=== PATIENT | male | born 1935 | race Caucasian/White ===

== ENCOUNTER 2016-04-03 11:50 | Inpatient (IN) | payer BC ==
[~2016-04-03] VITALS: Ht 182.9 cm; Wt 80.4 kg
[2016-04-03] MEDS ORDERED: SOD CHLORIDE 0.9% 1,000 ML IV STA (12:11)
[2016-04-03 12:35] VITALS: TEMP 98.3
[2016-04-03 12:36] LABS: HEMATOCRIT 36.4 % (42.0-52.0); HEMOGLOBIN 11.9 g/dl (14.0-18.0); MEAN CORPUSCULAR HGB CONC 32.7 g/dl (32.0-37.0); MEAN CORPUSCULAR VOLUME 85.7 fl (82.0-101.0); MEAN PLATELET VOLUME 6.7 fl (7.4-10.4); MONOCYTE # 0.9 10^3/ul (0.3-0.9); MONOCYTES % 6.5 % (0.0-11.0); NEUTROPHIL # 12.4 10^3/ul (1.6-7.5); NEUTROPHILS % 86.5 % (39.0-77.0); PLATELET COUNT 579 10^3/UL (140-440); RED BLOOD COUNT 4.25 10^6/ul (4.70-6.10); RED CELL DISTRIBUTION WIDTH 16.8 % (11.5-14.5); UNCORRECTED WBC 14.3 10^3/ul (4.8-10.8); WHITE BLOOD COUNT 14.3 10^3/ul (4.8-10.8)
[2016-04-03 12:39] LABS: CONDITION 1; LH ANALYZER COMMENTS 1
[2016-04-03 12:44] LABS: ALBUMIN 2.5 g/dl (3.3-4.9); CHLORIDE 100 mmol/L (97-110)
[2016-04-03 12:45] LABS: SODIUM 136 mmol/L (135-144)
[2016-04-03 12:46] LABS: INR 1.09; PROTIME 14.1 Sec (12.2-14.2); PT RATIO 1.1
[2016-04-03 12:47] LABS: ALANINE AMINOTRANSFERASE 26 IU/L (13-69); ALBUMIN/GLOBULIN RATIO 0.96; ALKALINE PHOSPHATASE 103 IU/L (42-121); ANION GAP 13 (8-16); ASPARTATE AMINO TRANSFERASE 15 IU/L (15-46); BILIRUBIN,INDIRECT 0.2 mg/dl (0-1.1); BILIRUBIN,TOTAL 0.2 mg/dl (0.2-1.3); BLOOD UREA NITROGEN 14 mg/dl (7-20); CARBON DIOXIDE 27 mmol/L (21-31); GLUCOSE 129 mg/dl (70-220); TOTAL PROTEIN 5.1 g/dl (6.1-8.1)
[2016-04-03 12:48] LABS: CALCIUM 8.2 mg/dl (8.4-10.2)
[2016-04-03 12:59] LABS: TROPONIN-I < 0.012 ng/ml (0.00-0.12)
[2016-04-03] MEDS ORDERED: MESA1.2T2 PO (13:07)
[2016-04-03] MEDS ORDERED: TAMS0.4C2 PO (13:07)
[2016-04-03] MEDS ORDERED: ATOR40TA68 PO (13:07)
[2016-04-03] MEDS ORDERED: CANA1000R PR (13:08)
[2016-04-03] MEDS ORDERED: OMEP20CA16 PO (13:08)
[2016-04-03] MEDS ORDERED: SOD CHLORIDE 0.9% 100 ML ONE ×2 (13:14→17:28)
[2016-04-03] MEDS ORDERED: IOHEXOL 100 ML ONE (13:14)
[2016-04-03 13:22] LABS: AADO2 Arterial 44.6 mmHg (7.0-24.0); Allen Test ACCEPTAB; Arterial Base Excess -0.4 mmol/L (-3.0-3); Arterial COHb 0.3 % (0.0-3.0); Arterial Fraction of Oxyhgb 91.6 % (93.0-99.0); Arterial HCO3 23.2 mmol/L (22.0-26.0); Arterial MetHb 0.2 % (0.0-1.5); Arterial Total Hemglobin 12.3 g/dl (12.0-18.0); MODE ROOM AIR
--- NOTE | 2016-04-03 14:01 | RADRPT ---
PROCEDURE: CTA Chest. CLINICAL INDICATION: r/o pe TECHNIQUE: The study was performed utilizing a multidetector CT scanner. Direct spiral 1 mm axial sections were obtained from the thoracic inlet to the upper abdomen with the use of 100 cc of Omnipa que 350 nonionic intravenous contrast material and reformatted at 3 mm. 3-D angiogram, sagittal and Coronal reformations were obtained. The images were reviewed on a PACS workstation. CT D I 42 mCi. Dose 581 mCi per centimeter COMPARISON: No prior studies are available for comparison. FINDINGS: There is no central or peripheral pulmonary embolism. Calcified plaque is seen in the aorta. No an eurysm or dissection is present. There is cardiomegaly with coronary artery calcifications. Noted is a [id number] left pleural effusion. No right pleural effusion or pericardial effusion is present. There is collapse of the basilar segments of the left lower lobe as well as the inferior s egment of the lingula. Mild ground-glass interstitial infiltrate is seen on the dorsal aspect of th e left upper lobe in the superior segment of the left lower lobe. There is minimal atelectasis in t he dependent portion of the right lung. Noted is mild emphysema. No lung masses seen. There is no pneumothorax. No hilar or mediastinal adenopathy or masses seen. There is marked enlargement of the spleen which is only partially included on the study. It measure s greater than 22 cm in AP diameter. No hepatic or adrenal abnormality is identified. There is no axillary, supraclavicular or internal mammary chain adenopathy. Thoracic spine appears normal. IMPRESSION: No pulmonary embolism. Vascular calcifications. No aortic dissection or aneurysm. Moderate to large left pleural effusion with partial left lung collapse. Mild ground-glass intersti tial infiltrate left upper lobe and left lower lobe. No alveolar pneumonia. Emphysema. Cardiomegaly. Marked splenomegaly - question CLL. .Everett Best MD, MD Date Time Electronically viewed and signed by .Everett Best MD, on 04/03/2016 14:00 .A/
[2016-04-03] MEDS ORDERED: CEFTRIAXONE 1 GM/50 ML (PMX) 50 ML IVPB ONE (15:00)
[2016-04-03] MEDS ORDERED: AZITHROMYCIN 500MG/NS (PMX) 250 ML IVPB ONE (15:00)
--- NOTE | 2016-04-03 15:45 | ERA ---
ER Documentation Chief Complaint Date/Time DATE: 04/03/16 TIME: 15:36 Chief Complaint mild sob for the past few days. sent by pmd for ct and further eval HPI 80-year-old man complains of increasing shortness of breath 4 months as well as a 15 pound weight loss since that time. Last year he was diagnosed with ulcerative colitis on colonoscopy after experiencing diarrhea at that time. He has shortness of breath with speaking and recent increasing dyspnea on exertion. His PMD ordered a chest x-ray which revealed a fairly large left- sided pleural effusion, which is new and referred him here for further evaluation. Patient denies fevers or chills, no vomiting or diarrhea, no chest pain, no headache or blurry vision. ROS All systems reviewed and are negative except as per history of present illness. Medications Home Meds Reported Medications Mesalamine* (Canasa*) 1,000 Mg Supp, 1000 MG AK HS, SUPP.RECT 04/03/16 Omeprazole* (Omeprazole*) 20 Mg Capsule.dr, 20 MG PO DAILY, #30 CAP 04/03/16 Mesalamine (Lialda) 1.2 Gm Tablet.dr, 1.2 GM PO DAILY 04/03/16 Atorvastatin* (Atorvastatin*) 40 Mg Tablet, 40 MG PO QHS, #30 TAB 04/03/16 Tamsulosin Hcl* (Tamsulosin Hcl*) 0.4 Mg Cap.er.24h, 0.4 MG PO HS, CAP 04/03/16 Allergies Allergies: Coded Allergies: No Known Allergy (Unverified , 04/03/16) PMhx/Soc [id number] smoker who quit 40 years ago, BPH, dyslipidemia, ulcerative colitis Hx Alcohol Use: No Hx Substance Use: No Hx Tobacco Use: No Smoking Status: Former smoker FmHx Family History: No diabetes Physical Exam Vitals Vital Signs Date Time Temp Pulse Resp B/P Pulse Ox O2 Delivery O2 Flow Rate FiO2 04/03/16 12:35 98.3 93 20 148/73 98 Room Air 04/03/16 11:58 98.5 94 22 149/67 96 Physical Exam GENERAL: Well-developed, well-nourished, dyspneic, afebrile HEENT: Moist mucous membranes, pink conjunctiva, no cervical spine tenderness or step-off deformities, no goiter, no jaundice or icterus, extraocular movements intact without pain. No submandibular induration, and no pharyngeal erythema NEURO: Alert and oriented 3, cranial nerves II through XII intact bilaterally, pupils equal round reactive to light, no focal deficits or facial asymmetry, sensation intact distally Strength 5/5 in upper and lower extremities bilaterally CARDIAC: Tachycardic and regular, no murmurs rubs or gallops LUNGS: Poor air entry bilaterally worse on the left with crackles at the left base, no wheezing or stridor ABDOMEN: Soft nontender, no guarding, no rigidity, no rebound, no psoas sign no obturator sign. Normoactive bowel sounds SKIN: Warm and dry to touch, no abrasions, contusions, or hematomas, no lacerations, no ecchymosis, no target lesions, and without ulcers EXTREMITIES: No clubbing cyanosis or edema, calves are bilaterally symmetrical, no Homans sign, no popliteal cord sign. Distal pulses equal and bilateral PSYCH: Normal affect without agitation or irritability Result Diagram: 04/03/16 1230 04/03/16 1230 Results 24 hrs Laboratory Tests Test 04/03/16 12:30 04/03/16 13:16 Alanine Aminotransferase (ALT/SGPT) 26IU/L Albumin 2.5g/dl Albumin/Globulin Ratio 0.96 Alkaline Phosphatase 103IU/L Anion Gap 13 Aspartate Amino Transf (AST/SGOT) 15IU/L Basophils # 0.010^3/ul Basophils % 0.0% Blood Morphology Comment Blood Urea Nitrogen 14mg/dl CA 125 Antigen 211.0U/ml CA 19-9 Antigen < 1.4U/ml Calcium Level 8.2mg/dl Carbon Dioxide Level 27mmol/L Carcinoembryonic Antigen 0.4ng/ml Chloride Level 100mmol/L Cholesterol Level 125mg/dl Cholesterol/HDL Ratio 6.2RATIO Creatinine 0.70mg/dl Direct Bilirubin 0.00mg/dl Eosinophils # 0.010^3/ul Eosinophils % 0.0% Globulin 2.60g/dl Glucose Level 129mg/dl HDL Cholesterol 20mg/dl Hematocrit 36.4% Hemoglobin 11.9g/dl Hemoglobin A1c 6.0% INR International Normalized Ratio 1.09 Indirect Bilirubin 0.2mg/dl LDL Cholesterol, Calculated 82mg/dl Lactate Dehydrogenase 423IU/L Lipase < 10U/L Lymphocytes # 1.010^3/ul Lymphocytes % 7.0% Magnesium Level 2.1mg/dl Mean Corpuscular Hemoglobin 28.0pg Mean Corpuscular Hemoglobin Concent 32.7g/dl Mean Corpuscular Volume 85.7fl Mean Platelet Volume 6.7fl Monocytes # 0.910^3/ul Monocytes % 6.5% Neutrophils # 12.410^3/ul Neutrophils % 86.5% Nucleated Red Blood Cells # 0.010^3/ul Nucleated Red Blood Cells % 0.0/100WBC Platelet Count 90967^3/UL Potassium Level 4.0mmol/L Prothrombin Time 14.1Sec Prothrombin Time Ratio 1.1 Red Blood Count 4.2510^6/ul Red Cell Distribution Width 16.8% Sodium Level 136mmol/L Thyroid Stimulating Hormone (TSH) 3.470MIU/L Total Bilirubin 0.2mg/dl Total Protein 5.1g/dl Triglycerides Level 114mg/dl Troponin I < 0.012ng/ml White Blood Count 14.310^3/ul Arterial Blood HCO3 23.2mmol/L Arterial Blood Base Excess -0.4mmol/L Arterial Blood Oxygen Saturation 92.1mmHG Jonah Test ACCEPTAB Arterial Blood Gas Puncture Site Right Radial Arterial Blood Carboxyhemoglobin 0.3% Arterial Blood Date Drawn 04/03/2016 1:10:15 PM Arterial Blood Methemoglobin 0.2% Arterial Blood pCO2 (Temp correct) 34.4mmhg Arterial Blood pH (Temp corrected) 7.446 Arterial Blood pO2 (Temp corrected) 63.9mmHG Blood Gas A-a O2 Differential 44.6mmHg Blood Gas Modality ROOM AIR Blood Gas Notified Time 04/03/2016 1:21:54 PM Blood Gas Notified Whom DT Blood Gas Specimen Source Blood arterial Blood Gas Temperature 37.0C FiO2 21.0% Oxyhemoglobin Percent 91.6% Total Hemoglobin 12.3g/dl Current Medications Medications (Trade) Dose Ordered Sig/Brian Route PRN Reason Start Time Stop Time Status Last Admin Dose Admin Sodium Chloride 1,000 ml @ 1,000 mls/hr Q1H STAT IV 04/03/16 12:11 04/03/16 13:53 DC 04/03/16 12:34 Iohexol 100 ml @ STK-MED ONCE .ROUTE 04/03/16 13:14 04/03/16 13:15 DC 04/03/16 14:03 Sodium Chloride 100 ml @ ud STK-MED ONCE .ROUTE 04/03/16 13:14 04/03/16 13:15 DC 04/03/16 14:03 Ceftriaxone Sodium 50 ml @ 100 mls/hr ONCE ONCE IVPB 04/03/16 15:00 04/03/16 15:29 DC 04/03/16 15:30 Azithromycin (Zithromax 500mg/ NS (Pmx)) 250 ml @ 250 mls/hr ONCE ONCE IVPB 04/03/16 15:00 04/03/16 15:59 DC 04/03/16 15:47 Procedures/MDM IV line was established patient was placed on monitoring engineer rhythm strip revealed a sinus tachycardia at 100 bpm with upright P and T waves. Patient was afebrile. EKG performed, read by me revealed a normal sinus rhythm at 93 bpm, normal axis with a narrow QRS complex and poor R-wave progression in precordial leads consistent with a previous [facility], no concerning ST elevations or depressions noted. CT angiogram of the chest was performed there was no pulmonary embolism noted although there was a large left-sided pleural effusion with apparent pulmonary collapse and a large interstitial infiltrate. ABG on room air revealed a pH of 7.45, PCO2 34, PO2 64 revealing hypoxia. CBC revealed a leukocytosis of 14 otherwise unremarkable, electrolytes are within normal limits, liver function tests are normal, troponin was negative. I administered 1 L normal saline intravenously, ceftriaxone 1 g IV, and azithromycin 500 mg IV. Critical Care: Time: 40 minutes, this was time separate from other procedures. Treatments/Evaluations: Close monitoring and treatment of unstable vital signs, cardiorespiratory, and neurologic status, while maintaining tight balance of fluid, respiratory, and cardiac interventions. I spoke to Dr. Tovar regarding the patient's presentation, symptomatology, and CT angiogram findings. We both agreed that admission is the best course at this time for continued medical management, pulmonology consultation, and pleurocentesis. Departure Diagnosis: Primary Impression: Respiratory failure Qualified Code: J96.01 - Acute respiratory failure with hypoxia Additional Impressions: Pleural effusion Pulmonary infiltrate Weight loss Condition: DUY Ontiveros MD Apr 03, 2016 15:45
[2016-04-03] MEDS ORDERED: DOCUSATE SODIUM 100 MG CAP PO PRN (16:00)
[2016-04-03] MEDS ORDERED: NITROGLYCERIN (SL) 0.4 MG TAB SL PRN (16:00)
[2016-04-03] MEDS ORDERED: NACL 0.9% 3 ML SYG IV SCH (16:00)
[2016-04-03] MEDS ORDERED: LORAZEPAM 2 MG INJ IV PRN (16:00)
[2016-04-03] MEDS ORDERED: ONDANSETRON 4 MG INJ IV PRN (16:00)
[2016-04-03] MEDS ORDERED: morphine 2 MG INJ IV PRN (16:00)
[2016-04-03] MEDS ORDERED: ACETAMINOPHEN 325 MG TAB PO PRN (16:00)
[2016-04-03] MEDS ORDERED: ALBUTEROL/IPRATROPIUM (NEB) 3 ML AMP HHN PRN (16:00)
[2016-04-03 16:13] LABS: CHOL/HDL RATIO 6.2 RATIO; MAGNESIUM 2.1 mg/dl (1.7-2.5)
--- NOTE | 2016-04-03 16:36 | HP ---
Date/Time of Note Date/Time of Note DATE: 04/03/16 TIME: 16:11 Assessment/Plan VTE Prophylaxis VTE Prophylaxis Intervention: LMWH Assessment/Plan Assessment/Plan 80 yo male with a past medical history of essential hypertension, prostate CA s/ p seeding, hyperlipidemia, UC, previous smoker, ETOH abuse who presents with several month history of shortness of breath, and weight loss. 1. Shortness of breath - moderate sized left pleural effusion - will admit the patient to telemetry, US thoracentesis, consult pulm - check cytology of pleural fluid 2. 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 infectious ) - consult hem/onc, surgery, check tumor markers, CT abd/pelvis 4. UC - active - consult to GI - IV steroids 5. Anemia of chronic disease - continue to monitor 6. Essential Hypertension - hold meds, prn hydralazine sbp > 160 7. Prostate CA s/p seeding - check PSA 8. Dyslipidemia - hold statin 9. ETOH abuse - counseled patient on cessation 10. GI ppx - protonix 11. DVT ppx - lovenox CODE STATUS - DNR/DNI answered all of his questions. as per clinical course. this history and physical took greater then 45 minutes to complete HPI/ROS Admit Date/Time Admit Date/Time 04/03/2016, 4:12 pm Hx of Present Illness 80 yo male with a past medical history of essential hypertension, prostate CA s/ p seeding, hyperlipidemia, UC, previous smoker, ETOH abuse who presents with several month history of shortness of breath, and weight loss. Patient states that he has nausea, diarrhea (previously bloody), fatigue, 15 lb weight loss over 3 months, decreased appetite, night sweats and generalized fatigue. His shortness of breath has progressively worsened, limiting his mobility markedly. Denies any chest pain, loss of consciousness, headaches/dizziness, urinary/ bowel irregularities, fevers/chills, or other constitutional symptoms. His previous Hem/Onc was Dr. Pete Newton in [facility]. Last colonoscopy was done in October of 2015, negative bx's. ED course: azithro/rocephin ROS 14 point review of systems completed, please refer to HPI for any positive findings PMH/Family/Social Past Medical History UC, prostate CA s/p seeding Medical History: GI bleed, high cholesterol, hypertension Past Surgical History s/p seeding placement for prostate, colonoscopy 10/2015, [facility] for deviated septum Family History Significant Family History: no pertinent family hx, cancer (none), COPD (none) , diabetes (none) Social History Alcohol Use: heavy (2-3 pretty) Smoking Status: Former smoker (20 yr ppd hx) Drug Use: none Exam/Review of Systems Vital Signs Vitals Vital Signs Date Time Temp Pulse Resp B/P Pulse Ox O2 Delivery O2 Flow Rate FiO2 04/03/16 12:35 98.3 93 20 148/73 98 Room Air Exam Exam Gen Hermelindo: moderate respiratory distress, AAOx4 HEENT: NC/AT, PERRLA, EOMI, no pharyngeal erythema, no tonsillar exudates, no lymphadenopathy, no JVD, no carotid bruits NECK: supple, no thyromegaly THORAX: symmetrical, no obvious deformities CV: S1S2, RRR, no M/G/R Lungs: CTAB no W/C/R/R Abd: soft, NT/distended, +BS, no rebound, no guarding, +HSM EXT: 2+ pitting edema, no ecchymosis, no clubbing, FROM Neuro: CN II-XII grossly intact, no focal deficits Psych: fair mood and affect Skin: decreased skin turgor Labs Result Diagram: 04/03/16 1230 04/03/16 1230 Medications Medications Current Medications Lorazepam (Ativan) 0.5 mg Q6H PRN IV ANXIETY; Start 04/03/16 at 16:00 Ondansetron HCl (Zofran Inj) 4 mg Q6H PRN IV NAUSEA AND/OR VOMITING; Start 02/05 at 16:00 Nitroglycerin (Nitroglycerin (Sl Tab) 0.4 Mg) 1 tab Q5M PRN SL CHEST PAIN; Start 04/03/16 at 16:00 Acetaminophen (Tylenol Tab) 650 mg Q6H PRN PO PAIN LEVEL 1-3 OR FEVER; Start at 16:00 Morphine Sulfate (morphine) 2 mg Q4H PRN IV PAIN LEVEL 7-10; Start 04/03/16 at 16:00 Docusate Sodium (Colace) 100 mg Q12H PRN PO CONSTIPATION; Start 04/03/16 at 16: 00 Famotidine (Pepcid Iv) 20 mg Q12 IV ; Start 04/03/16 at 21:00 Enoxaparin Sodium 40 mg 40 mg DAILY SC ; Start 04/04/16 at 09:00 Ceftriaxone Sodium 50 ml @ 100 mls/hr Q24H IVPB ; Start 04/04/16 at 15:00 Azithromycin (Zithromax 500mg/ NS (Pmx)) 250 ml @ 250 mls/hr Q24H IVPB ; Start 04/04/16 at 16:00 Procedures Procedures CTA Chest IMPRESSION: No pulmonary embolism. Vascular calcifications. No aortic dissection or aneurysm. Moderate to large left pleural effusion with partial left lung collapse. Mild ground-glass interstitial infiltrate left upper lobe and left lower lobe. No alveolar pneumonia. Emphysema. Cardiomegaly. Marked splenomegaly - question CLL. SALVATORE SANDRA MD Apr 03, 2016 16:22
[2016-04-03 16:45] LABS: THYROID STIMULATING HORMONE 3.47 MIU/L (0.465-4.680)
[2016-04-03] MEDS ORDERED: IODIXANOL LOCM 100 ML BTL ONE (17:29)
[2016-04-03 17:32] LABS: CANCER ANTIGEN 19-9 < 1.4 U/ml (0.0-37.0); CARCINOEMBRYONIC ANTIGEN 0.4 ng/ml (0.0-5.0)
[2016-04-03 17:54] VITALS: BP 148/78; PULSE 103; RESP 15
[2016-04-03 17:55] VITALS: PULSE 110
[2016-04-03 18:05] VITALS: Ht 182.9 cm; Wt 80.4 kg
--- NOTE | 2016-04-03 18:59 | RADRPT ---
PROCEDURE: CT Abdomen and Pelvis with contrast. CLINICAL INDICATION: Abdominal pain TECHNIQUE: CT scan of the abdomen and pelvis with and without contrast was performed on a multidet justo high-resolution CT scanner. The patient was scanned following the uncomplicated intravenous a dministration of 100 cc of Omnipaque 300. Coronal and sagittal reformatted images were obtained fro m the axial source images. Images were reviewed on a high-resolution PACS workstation. The total exa m CTDI equals 7.40 mGy and the total exam DLP equals 827.72 mGy-cm. COMPARISON: None. FINDINGS: CT abdomen: There is trace right pleural effusion with minimal right basilar atelectasis. There is a moderate size left pleural effusion with compressive atelectasis in the left lung base. The heart size is normal. No pericardial effusion identified. There is a large, heterogeneous hypervascular mass in the left upper quadrant of the abdomen which m easures 22 x 21 x 17 cm There is small ascites, in the left upper quadrant, left pericolic gutter and in the pelvis. The mass displaces the spleen inferiorly. The location of the mass is intraperitoneal, abutting the underside of the left hemidiaphragm, displ acing the stomach medially and extending from the midline to the left lateral abdominal wall. The liver demonstrates normal size and density. No liver mass identified. In the left and right lobes of the liver there are numerous sub centimeter low density foci which ar e too small to characterize by CT criteria, but statistically likely represents cysts. The gallbladder is unremarkable. There is no intrahepatic or extrahepatic biliary dilatation. The spleen is normal in size. No focal splenic abnormality identified. No gross abnormality of the stomach is identified. The pancreas is unremarkable. The adrenal glands appear normal. The kidneys are unremarkable. There is no evidence of renal mass, renal calculi or hydronephrosis. The aorta is of normal caliber. Aortic vascular calcifications are present. No adenopathy identified. The bowel and mesentery are unremarkable. CT pelvis: The pelvic organs are normal. The pelvic sidewalls and inguinal regions are clear. The sigmoid colon and rectum are remarkable for sigmoid diverticulosis. No adenopathy, free fluid or inflammatory change identified. The osseous structures are remarkable for advanced degenerative spondylosis of the spine at L4/L5 an d L5-S1. Grade 1 anterolisthesis of L4 on L5. No osteolytic or osteoblastic lesion is detected. There is a small right inguinal hernia. Radiation seeds are seen in the prostate bed. IMPRESSION: 1. Large mass in the left upper quadrant of the abdomen of indeterminate origin and measuring 23 cm with an estimated volume of 4.3 liters. Soft tissue sampling may be necessary for definitive diagn osis. 2. Small ascites. 3. Moderate atherosclerotic peripheral vascular disease. 4. Moderate size left pleural effusion. 5. Moderate compressive atelectasis in the left lung base. 6. Trace right pleural effusion. 7. Small right inguinal hernia. RPTAT: QQ .Jose M Franklin MD, Date Time Electronically viewed and signed by .Jose M Franklin MD, on 04/03/2016 18:59 .M/
[2016-04-03 19:24] LABS: CREATINE KINASE < 20 IU/L (23-200)
[2016-04-03 19:53] LABS: CK-MB 0.87 ng/ml (0.0-2.4); TROPONIN-I < 0.012 ng/ml (0.00-0.12)
[2016-04-03 20:01] VITALS: PULSE 90
[2016-04-03] MEDS: FAMOTIDINE 20 MG INJ IV SCH (20:02)
[2016-04-03 20:21] VITALS: BP 136/65; RESP 16
[2016-04-03 22:05] LABS: CREATINE KINASE < 20 IU/L (23-200)
[2016-04-03 22:23] LABS: CK-MB 0.82 ng/ml (0.0-2.4); TROPONIN-I < 0.012 ng/ml (0.00-0.12)
[2016-04-03 23:51] VITALS: BP 150/70; RESP 20
[2016-04-04] VITALS (12 sets, daily range): BP systolic 140–164; BP diastolic 76–84; PULSE 80–99; RESP 17–20
[2016-04-04 06:13] LABS: BASOPHILS % 0.1 % (0.0-2.0); HEMATOCRIT 34.7 % (42.0-52.0); HEMOGLOBIN 11.5 g/dl (14.0-18.0); LYMPHOCYTES # 1.3 10^3/ul (0.8-2.9); LYMPHOCYTES % 10.7 % (15.0-51.0); MEAN CORPUSCULAR HEMOGLOBIN 28.4 pg (29.0-33.0); MEAN CORPUSCULAR HGB CONC 33.2 g/dl (32.0-37.0); MEAN CORPUSCULAR VOLUME 85.4 fl (82.0-101.0); MEAN PLATELET VOLUME 6.9 fl (7.4-10.4); MONOCYTE # 0.9 10^3/ul (0.3-0.9); MONOCYTES % 7.1 % (0.0-11.0); NEUTROPHIL # 10.1 10^3/ul (1.6-7.5); NEUTROPHILS % 82.1 % (39.0-77.0); PLATELET COUNT 531 10^3/UL (140-440); RED BLOOD COUNT 4.07 10^6/ul (4.70-6.10); UNCORRECTED WBC 12.3 10^3/ul (4.8-10.8); WHITE BLOOD COUNT 12.3 10^3/ul (4.8-10.8)
[2016-04-04 06:22] LABS: CONDITION 1; LH ANALYZER COMMENTS 1
[2016-04-04 06:43] LABS: CREATININE 0.71 mg/dl (0.61-1.24)
[2016-04-04 06:44] LABS: CALCIUM 8.1 mg/dl (8.4-10.2)
--- NOTE | 2016-04-04 06:54 | CONS ---
DATE OF ADMISSION: 04/03/2016 DATE OF CONSULTATION: 04/03/2016 TYPE OF CONSULTATION: Pulmonary. PRIMARY PHYSICIAN: Lobito Moralez MD REASON FOR CONSULTATION: Left pleural effusion, evaluation of pleural effusion. HISTORY OF PRESENT ILLNESS: Briefly, this is a 80-year-old gentleman with a history of hypertension , prostate cancer status post radiation, hyperlipidemia, ulcerative colitis, ETOH abuse, who present s with a subacute history of increasing shortness of breath and weight loss. Additionally, he endor ses nausea and diarrhea and a 15-pound weight loss. He also says that he has had progressive dyspne a on exertion and increasing shortness of breath and abdominal distention. PAST MEDICAL HISTORY: As noted above. In addition, hypercholesterolemia and prior GI bleed. PAST SURGICAL HISTORY: Status post radiation seed implantation for prostate cancer and colonoscopy and surgery for deviated septum. SOCIAL HISTORY: Occasional alcohol. Former tobacco, quit years prior, but has a 20-year pack smoki ng history. No illicit drug use. PHYSICAL EXAMINATION: VITAL SIGNS: Heart rate is 101, blood pressure is 134/73, oxygen saturation is 93% on room air, tem perature is 98.3. HEENT: Normocephalic, atraumatic. NECK: Supple, no thyromegaly. CARDIOVASCULAR: Regular rate and rhythm, S1 and S2. No murmurs, rubs, or gallops. CHEST: Clear with decreased breath sounds at the left base. ABDOMEN: Soft, distended, massive splenomegaly is palpated. EXTREMITIES: There is 1 to 2+ lower extremity edema. LABORATORY DATA: BMP is within normal limits. Albumin is 2.5, total protein is 5.1. Coags are wit hin normal limits. ABG: pH is 7.45, pCO2 of 34, pO2 is 64. WBC is 14.3, hemoglobin 11.9, platelet s are 579. CT pulmonary angiogram shows no pulmonary embolism, shows a moderate-sized left pleural effusion with some associated atelectatic lung as well as central lobular emphysema and there is a m assively enlarged spleen noted. IMPRESSION: Left pleural effusion. I suspect that this patient's pleural effusion is associated wi th the condition that has resulted in his hepatosplenomegaly. At this point, the most likely etiolo gical consideration would be a lymphoproliferative disorder such as non-Hodgkin's lymphoma in view o f no significant abnormalities in his peripheral blood. I doubt this is chronic myeloid leukemia. RECOMMENDATIONS: 1. Ultrasound-guided therapeutic and diagnostic thoracentesis to be sent for routine pleural studie s including cell count with diff, total protein, glucose, LDH, and cytological examination as well a s Gram stain and culture. 2. Would obtain a serum LDH. 3. Would obtain hematology/oncology evaluation. 4. Would consider sending pleural fluid for flow cytometry as lymphoma is very high on the differen tial. Dictated By: SHUN GAY MD NK/NTS Conf#: [id number] DID#: [id number] CC: LOBITO MORALEZ MD; SURENDRA POLLARD MD;*End*
[2016-04-04] MEDS: ENOXAPARIN 40 MG/0.4 ML SYG SC SCH (08:12)
[2016-04-04] MEDS: FAMOTIDINE 20 MG INJ IV SCH ×2 (08:12→20:25)
--- NOTE | 2016-04-04 10:52 | PN ---
Date/Time of Note Date/Time of Note DATE: 04/04/16 TIME: 10:46 Assessment/Plan VTE Prophylaxis VTE Prophylaxis Intervention: LMWH Lines/Catheters IV C[facility]ter Type [facility]from [facility] Saline Lock Urinary Cath still in place: No Assessment/Plan Chief Complaint/Hosp Course Assessment/Plan 1. Shortness of breath - moderate sized left pleural effusion -plan for US thoracentesis, pulm consulted- check cytology of pleural fluid 2. 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 infectious ) - consult hem/onc, surgery, check tumor markers, CT abd/pelvis reviewed 4. UC - active - consult to GI - IV steroids 5. Anemia of chronic disease - continue to monitor 6. Essential Hypertension - hold meds if systolic blood pressure is less than 110, 7. Prostate CA s/p seeding -follow-up PSA level 8. Dyslipidemia - hold statin 9. ETOH abuse - counseled patient on cessation 10. GI ppx - protonix 11. DVT ppx - lovenox CODE STATUS - DNR/DNI answered all of his questions. as per clinical course. Problems: Subjective 24 Hr Interval Summary Free Text/Dictation Patient complains of having shortness of breath No nausea vomiting diarrhea denies of any chest pain Exam/Review of Systems Vital Signs Vitals Vital Signs Date Time Temp Pulse Resp B/P Pulse Ox O2 Delivery O2 Flow Rate FiO2 04/04/16 09:35 89 04/04/16 07:57 98.2 17 164/81 94 Nasal Cannula 2.0 Intake and Output 04/03/16 04/03/16 04/04/16 15:00 23:00 07:00 Intake Total 250 ml Balance 250 ml Exam General: The patient is well-developed, Not in acute distress. HEENT: Atraumatic, normocephalic. The pupils are equal and round . Neck: Supple with full range of motion. Chest: Normal expansion of the thorax during inspiration Lungs: Decreased breath sounds left lung field Heart: Normal S1-S2, Regular rhythm and rate. Abdomen: Soft , nontender, nondistended , bowel sounds are present. Extremities: Normal to inspection, no edema no cyanosis Neurologic: Normal mental status,The patient is awake, alert and oriented . Results Result Diagram: 04/04/16 0540 04/04/16 0540 Results 24 hrs Laboratory Tests Test 04/03/16 12:30 04/03/16 13:16 04/03/16 18:20 04/03/16 21:40 Alanine Aminotransferase (ALT/SGPT) 26 Albumin 2.5 L Albumin/Globulin Ratio 0.96 Alkaline Phosphatase 103 Alpha Fetoprotein 1.28 Anion Gap 13 Aspartate Amino Transf (AST/SGOT) 15 Basophils # 0.0 Basophils % 0.0 Blood Morphology Comment Blood Urea Nitrogen 14 CA 125 Antigen 211.0 H CA 19-9 Antigen < 1.4 Calcium Level 8.2 L Carbon Dioxide Level 27 Carcinoembryonic Antigen 0.4 Chloride Level 100 Cholesterol Level 125 Cholesterol/HDL Ratio 6.2 Creatinine 0.70 Direct Bilirubin 0.00 Eosinophils # 0.0 Eosinophils % 0.0 Globulin 2.60 Glucose Level 129 HDL Cholesterol 20 L Hematocrit 36.4 L Hemoglobin 11.9 L Hemoglobin A1c 6.0 H INR International Normalized Ratio 1.09 Indirect Bilirubin 0.2 LDL Cholesterol, Calculated 82 Lactate Dehydrogenase 423 Lipase < 10 L Lymphocytes # 1.0 Lymphocytes % 7.0 L Magnesium Level 2.1 Mean Corpuscular Hemoglobin 28.0 L Mean Corpuscular Hemoglobin Concent 32.7 Mean Corpuscular Volume 85.7 Mean Platelet Volume 6.7 L Monocytes # 0.9 Monocytes % 6.5 Neutrophils # 12.4 H Neutrophils % 86.5 H Nucleated Red Blood Cells # 0.0 Nucleated Red Blood Cells % 0.0 Platelet Count 579 H Potassium Level 4.0 Prothrombin Time 14.1 Prothrombin Time Ratio 1.1 Red Blood Count 4.25 L Red Cell Distribution Width 16.8 H Sodium Level 136 Thyroid Stimulating Hormone (TSH) 3.470 Total Bilirubin 0.2 Total Protein 5.1 L 4.4 L Triglycerides Level 114 Troponin I < 0.012 < 0.012 < 0.012 White Blood Count 14.3 H Arterial Blood HCO3 23.2 Arterial Blood Base Excess -0.4 Arterial Blood Oxygen Saturation 92.1 L Jonah Test ACCEPTAB Arterial Blood Gas Puncture Site Right Radial Arterial Blood Carboxyhemoglobin 0.3 Arterial Blood Date Drawn 04/03/2016 1:10:15 PM Arterial Blood Methemoglobin 0.2 Arterial Blood pCO2 (Temp correct) 34.4 L Arterial Blood pH (Temp corrected) 7.446 Arterial Blood pO2 (Temp corrected) 63.9 L Blood Gas A-a O2 Differential 44.6 H Blood Gas Modality ROOM AIR Blood Gas Notified Time 04/03/2016 1:21:54 PM Blood Gas Notified Whom DT Blood Gas Specimen Source Blood arterial Blood Gas Temperature 37.0 FiO2 21.0 Oxyhemoglobin Percent 91.6 L Total Hemoglobin 12.3 Creatine Kinase < 20 L < 20 L Creatine Kinase Index Creatinine Kinase MB (Mass) 0.87 0.82 Test 04/04/16 05:40 Anion Gap 9 Basophils # 0.0 Basophils % 0.1 Blood Morphology Comment Blood Urea Nitrogen 12 Calcium Level 8.1 L Carbon Dioxide Level 26 Chloride Level 103 Creatinine 0.71 Eosinophils # 0.0 Eosinophils % 0.0 Glucose Level 101 Hematocrit 34.7 L Hemoglobin 11.5 L Lymphocytes # 1.3 Lymphocytes % 10.7 L Mean Corpuscular Hemoglobin 28.4 L Mean Corpuscular Hemoglobin Concent 33.2 Mean Corpuscular Volume 85.4 Mean Platelet Volume 6.9 L Monocytes # 0.9 Monocytes % 7.1 Neutrophils # 10.1 H Neutrophils % 82.1 H Nucleated Red Blood Cells # 0.0 Nucleated Red Blood Cells % 0.0 Platelet Count 531 H Potassium Level 4.0 Red Blood Count 4.07 L Red Cell Distribution Width 16.0 H Sodium Level 134 L White Blood Count 12.3 H Medications Medications Current Medications Lorazepam (Ativan) 0.5 mg Q6H PRN IV ANXIETY; Start 04/03/16 at 16:00 Ondansetron HCl (Zofran Inj) 4 mg Q6H PRN IV NAUSEA AND/OR VOMITING; Start 02/05 at 16:00 Nitroglycerin (Nitroglycerin (Sl Tab) 0.4 Mg) 1 tab Q5M PRN SL CHEST PAIN; Start 04/03/16 at 16:00 Acetaminophen (Tylenol Tab) 650 mg Q6H PRN PO PAIN LEVEL 1-3 OR FEVER; Start at 16:00 Morphine Sulfate (morphine) 2 mg Q4H PRN IV PAIN LEVEL 7-10; Start 04/03/16 at 16:00 Docusate Sodium (Colace) 100 mg Q12H PRN PO CONSTIPATION; Start 04/03/16 at 16: 00 Famotidine (Pepcid Iv) 20 mg Q12 IV Last administered on 04/04/16t 08:12; Admin Dose 20 MG; Start 04/03/16 at 21:00 Enoxaparin Sodium 40 mg 40 mg DAILY SC ; Start 04/04/16 at 09:00 Ceftriaxone Sodium 50 ml @ 100 mls/hr Q24H IVPB ; Start 04/04/16 at 15:00 Azithromycin (Zithromax 500mg/ NS (Pmx)) 250 ml @ 250 mls/hr Q24H IVPB ; Start 04/04/16 at 16:00 DIAN VIEYRA MD Apr 04, 2016 10:52
--- NOTE | 2016-04-04 11:28 | CONS ---
Date/Time of Note Date/Time of Note DATE: 04/04/16 TIME: 11:23 Assessment/Plan Assessment/Plan Additional Assessment/Plan Assessment recommendations; 1. Patient admitted with shortness of breath discovered to have moderate left pleural effusion with a very large cystic mass around the spleen. 2. History of ulcerative colitis recently diagnosed patient had a colonoscopy in October of last year which according to the patient did not reveal any signs of malignancy. 3. Hyperlipidemia. 4. CA prostate. 5. Alcohol abuse Continue current treatment. Patient scheduled for ultrasound-guided thoracentesis. At this time I would recommend obtaining a general surgery consult, the patient may need to have a laparotomy performed.. Consultation Date/Type/Reason Admit Date/Time Apr 03, 2016 at 15:36 Initial Consult Date Type of Consultation: Pulmonary 24 HR Interval Summary Free Text/Dictation Patient condition is stable. Complains of a scant cough. Minimal shortness of breath. Complains of abdominal discomfort. Denies any nausea vomiting. Next General examination; elderly male, currently in no distress. Awake and alert. Exam/Review of Systems Vital Signs Vitals Vital Signs Date Time Temp Pulse Resp B/P Pulse Ox O2 Delivery O2 Flow Rate FiO2 04/04/16 09:35 89 04/04/16 07:57 98.2 17 164/81 94 Nasal Cannula 2.0 Intake and Output 04/03/16 04/03/16 04/04/16 15:00 23:00 07:00 Intake Total 250 ml Balance 250 ml Exam H EENT examination; supple neck, no JVD. No lymphadenopathy. No thyromegaly. Pharynx is clear. Pupils are small bilaterally. Chest examination; diminished breath sounds left lower lobe otherwise clear, S1- S2 audible, no murmurs. Regular rhythm. Abdomen examination; there is tenderness tenderness and fullness in the left upper quadrant area. Bowel sounds audible. Extremity examination; no edema. LOT BOSS examination no focal deficit. Results Result Diagram: 04/04/16 0540 04/04/16 0540 Results 24 hrs Laboratory Tests Test 04/03/16 12:30 04/03/16 13:16 04/03/16 18:20 04/03/16 21:40 Alanine Aminotransferase (ALT/SGPT) 26 Albumin 2.5 L Albumin/Globulin Ratio 0.96 Alkaline Phosphatase 103 Alpha Fetoprotein 1.28 Anion Gap 13 Aspartate Amino Transf (AST/SGOT) 15 Basophils # 0.0 Basophils % 0.0 Blood Morphology Comment Blood Urea Nitrogen 14 CA 125 Antigen 211.0 H CA 19-9 Antigen < 1.4 Calcium Level 8.2 L Carbon Dioxide Level 27 Carcinoembryonic Antigen 0.4 Chloride Level 100 Cholesterol Level 125 Cholesterol/HDL Ratio 6.2 Creatinine 0.70 Direct Bilirubin 0.00 Eosinophils # 0.0 Eosinophils % 0.0 Globulin 2.60 Glucose Level 129 HDL Cholesterol 20 L Hematocrit 36.4 L Hemoglobin 11.9 L Hemoglobin A1c 6.0 H INR International Normalized Ratio 1.09 Indirect Bilirubin 0.2 LDL Cholesterol, Calculated 82 Lactate Dehydrogenase 423 Lipase < 10 L Lymphocytes # 1.0 Lymphocytes % 7.0 L Magnesium Level 2.1 Mean Corpuscular Hemoglobin 28.0 L Mean Corpuscular Hemoglobin Concent 32.7 Mean Corpuscular Volume 85.7 Mean Platelet Volume 6.7 L Monocytes # 0.9 Monocytes % 6.5 Neutrophils # 12.4 H Neutrophils % 86.5 H Nucleated Red Blood Cells # 0.0 Nucleated Red Blood Cells % 0.0 Platelet Count 579 H Potassium Level 4.0 Prothrombin Time 14.1 Prothrombin Time Ratio 1.1 Red Blood Count 4.25 L Red Cell Distribution Width 16.8 H Sodium Level 136 Thyroid Stimulating Hormone (TSH) 3.470 Total Bilirubin 0.2 Total Protein 5.1 L 4.4 L Triglycerides Level 114 Troponin I < 0.012 < 0.012 < 0.012 White Blood Count 14.3 H Arterial Blood HCO3 23.2 Arterial Blood Base Excess -0.4 Arterial Blood Oxygen Saturation 92.1 L Jonah Test ACCEPTAB Arterial Blood Gas Puncture Site Right Radial Arterial Blood Carboxyhemoglobin 0.3 Arterial Blood Date Drawn 04/03/2016 1:10:15 PM Arterial Blood Methemoglobin 0.2 Arterial Blood pCO2 (Temp correct) 34.4 L Arterial Blood pH (Temp corrected) 7.446 Arterial Blood pO2 (Temp corrected) 63.9 L Blood Gas A-a O2 Differential 44.6 H Blood Gas Modality ROOM AIR Blood Gas Notified Time 04/03/2016 1:21:54 PM Blood Gas Notified Whom DT Blood Gas Specimen Source Blood arterial Blood Gas Temperature 37.0 FiO2 21.0 Oxyhemoglobin Percent 91.6 L Total Hemoglobin 12.3 Creatine Kinase < 20 L < 20 L Creatine Kinase Index Creatinine Kinase MB (Mass) 0.87 0.82 Test 04/04/16 05:40 Anion Gap 9 Basophils # 0.0 Basophils % 0.1 Blood Morphology Comment Blood Urea Nitrogen 12 Calcium Level 8.1 L Carbon Dioxide Level 26 Chloride Level 103 Creatinine 0.71 Eosinophils # 0.0 Eosinophils % 0.0 Glucose Level 101 Hematocrit 34.7 L Hemoglobin 11.5 L Lymphocytes # 1.3 Lymphocytes % 10.7 L Mean Corpuscular Hemoglobin 28.4 L Mean Corpuscular Hemoglobin Concent 33.2 Mean Corpuscular Volume 85.4 Mean Platelet Volume 6.9 L Monocytes # 0.9 Monocytes % 7.1 Neutrophils # 10.1 H Neutrophils % 82.1 H Nucleated Red Blood Cells # 0.0 Nucleated Red Blood Cells % 0.0 Platelet Count 531 H Potassium Level 4.0 Red Blood Count 4.07 L Red Cell Distribution Width 16.0 H Sodium Level 134 L White Blood Count 12.3 H Medications Medications Current Medications Lorazepam (Ativan) 0.5 mg Q6H PRN IV ANXIETY; Start 04/03/16 at 16:00 Ondansetron HCl (Zofran Inj) 4 mg Q6H PRN IV NAUSEA AND/OR VOMITING; Start 02/05 at 16:00 Nitroglycerin (Nitroglycerin (Sl Tab) 0.4 Mg) 1 tab Q5M PRN SL CHEST PAIN; Start 04/03/16 at 16:00 Acetaminophen (Tylenol Tab) 650 mg Q6H PRN PO PAIN LEVEL 1-3 OR FEVER; Start at 16:00 Morphine Sulfate (morphine) 2 mg Q4H PRN IV PAIN LEVEL 7-10; Start 04/03/16 at 16:00 Docusate Sodium (Colace) 100 mg Q12H PRN PO CONSTIPATION; Start 04/03/16 at 16: 00 Famotidine (Pepcid Iv) 20 mg Q12 IV Last administered on 04/04/16t 08:12; Admin Dose 20 MG; Start 04/03/16 at 21:00 Enoxaparin Sodium 40 mg 40 mg DAILY SC ; Start 04/04/16 at 09:00 Ceftriaxone Sodium 50 ml @ 100 mls/hr Q24H IVPB ; Start 04/04/16 at 15:00 Azithromycin (Zithromax 500mg/ NS (Pmx)) 250 ml @ 250 mls/hr Q24H IVPB ; Start 04/04/16 at 16:00 NATASHA RIVAS Apr 04, 2016 11:28
[2016-04-04] MEDS ORDERED: LIDOCAINE 1% (MPF) 5 ML VIAL ONE (14:20)
--- NOTE | 2016-04-04 14:45 | CONS ---
Date/Time of Note Date/Time of Note DATE: 04/04/16 TIME: 14:30 Assessment/Plan Assessment/Plan Chief Complaint/Hosp Course 80 yo male with history of prostate cancer, who presents with a L sided pleural effusion as well as a large heterogeneous hypervascular mass in the left upper quadrant of the abdomen which measures 22 x 21 x 17 cm. At this point I am definitively concerned for an underlying malignancy as the underlying cause of this pleural effusion and abdominal mass. This far LDH is normal which makes a high grade lymphoma less likely although this does not rule out lymphoma all together. -f/u cytology from the thoracentesis -if cytology is negative will need to discuss with surgery and IR the possibility of performing a biopsy on this mass for tissue diagnosis. Approximately 40 min were spent at patient's bedside and in coordination of his care Problems: Consultation Date/Type/Reason Admit Date/Time Apr 03, 2016 at 15:36 Date of Consultation: Apr 04, 2016 Type of Consultation: Oncology Reason for Consultation abdominal mass Referring Provider: SALVATORE SANDRA MD Hx of Present Illness 80 yo male with multiple medical problems including h/o prostate cancer that was definitively treated with XRT. Patient presents with several month history of shortness of breath, and weight loss. He also endorses nausea, diarrhea fatigue, 15 lb weight loss over 3 months, decreased appetite, night sweats and generalized fatigue. Since admission pt has had a CT Chest which demonstrates a large left pleural effusion with partial left lung collapse. A CT A/P was done which demonstrate a large abdominal cystic mass proximal to the spleen measuring almost 22cm. Constitutional: no complaints Eyes: no complaints ENT: no complaints Respiratory: pain, shortness of breath Cardiovascular: no complaints Gastrointestinal: decreased appetite, nausea, pain Genitourinary: no complaints Musculoskeletal: bone/joint pain Skin: no complaints Neurologic: no complaints Endocrine: no complaints Past Medical History essential hypertensio prostate CA s/p definitive radiation hyperlipidemia, ulcerative colitis x Medical History: GI bleed, high cholesterol, hypertension Family History Significant Family History: no pertinent family hx Social History previous smoker, ETOH abuse Alcohol Use: heavy (2-3 pretty) Smoking Status: Former smoker Drug Use: none Exam/Review of Systems Vital Signs Vitals Vital Signs Date Time Temp Pulse Resp B/P Pulse Ox O2 Delivery O2 Flow Rate FiO2 04/04/16 12:35 99 04/04/16 11:43 98.2 20 161/76 90 04/04/16 07:57 Nasal Cannula 2.0 Intake and Output 04/03/16 04/03/16 04/04/16 15:00 23:00 07:00 Intake Total 250 ml Balance 250 ml Exam Constitutional: alert, oriented Psych: no complaints Head: atraumatic, normocephalic Eyes: nl conjunctiva ENMT: nl external ears & nose Neck: non-tender, supple Respiratory: diminished breath sounds (left lung) Cardiovascular: nl pulses, regular rate and rhythm Gastrointestinal: distended, firm, other (pain over left Upper quadrant) Musculoskeletal: nl extremities to inspection, nl gait and stance Extremities: normal pulses Results Result Diagram: 04/04/16 0540 04/04/16 0540 Results 24 hrs Laboratory Tests Test 04/03/16 18:20 04/03/16 21:40 04/04/16 05:40 Creatine Kinase < 20 L < 20 L Creatine Kinase Index Creatinine Kinase MB (Mass) 0.87 0.82 Total Protein 4.4 L Troponin I < 0.012 < 0.012 Anion Gap 9 Basophils # 0.0 Basophils % 0.1 Blood Morphology Comment Blood Urea Nitrogen 12 Calcium Level 8.1 L Carbon Dioxide Level 26 Chloride Level 103 Creatinine 0.71 Eosinophils # 0.0 Eosinophils % 0.0 Glucose Level 101 Hematocrit 34.7 L Hemoglobin 11.5 L Lymphocytes # 1.3 Lymphocytes % 10.7 L Mean Corpuscular Hemoglobin 28.4 L Mean Corpuscular Hemoglobin Concent 33.2 Mean Corpuscular Volume 85.4 Mean Platelet Volume 6.9 L Monocytes # 0.9 Monocytes % 7.1 Neutrophils # 10.1 H Neutrophils % 82.1 H Nucleated Red Blood Cells # 0.0 Nucleated Red Blood Cells % 0.0 Platelet Count 531 H Potassium Level 4.0 Red Blood Count 4.07 L Red Cell Distribution Width 16.0 H Sodium Level 134 L White Blood Count 12.3 H Medications Medications Current Medications Lorazepam (Ativan) 0.5 mg Q6H PRN IV ANXIETY Last administered on 04/04/16t 12: 38; Admin Dose 0.5 MG; Start 04/03/16 at 16:00 Ondansetron HCl (Zofran Inj) 4 mg Q6H PRN IV NAUSEA AND/OR VOMITING; Start 02/05 at 16:00 Nitroglycerin (Nitroglycerin (Sl Tab) 0.4 Mg) 1 tab Q5M PRN SL CHEST PAIN; Start 04/03/16 at 16:00 Acetaminophen (Tylenol Tab) 650 mg Q6H PRN PO PAIN LEVEL 1-3 OR FEVER; Start at 16:00 Morphine Sulfate (morphine) 2 mg Q4H PRN IV PAIN LEVEL 7-10; Start 04/03/16 at 16:00 Docusate Sodium (Colace) 100 mg Q12H PRN PO CONSTIPATION; Start 04/03/16 at 16: 00 Famotidine (Pepcid Iv) 20 mg Q12 IV Last administered on 04/04/16t 08:12; Admin Dose 20 MG; Start 04/03/16 at 21:00 Enoxaparin Sodium 40 mg 40 mg DAILY SC ; Start 04/04/16 at 09:00 Ceftriaxone Sodium 50 ml @ 100 mls/hr Q24H IVPB ; Start 04/04/16 at 15:00 Azithromycin (Zithromax 500mg/ NS (Pmx)) 250 ml @ 250 mls/hr Q24H IVPB ; Start 04/04/16 at 16:00 LUPE TAYLOR M.D. Apr 04, 2016 14:45
[2016-04-04] MEDS: CEFTRIAXONE 1 GM/50 ML (PMX) 50 ML IVPB SCH (15:35)
[2016-04-04 16:19] LABS: FLUID TYPE PLEURAL
[2016-04-04 16:20] LABS: FLUID APPEARANCE CLEAR; FLUID LYMPHOCYTES 56 %; FLUID MONOCYTES 16 %; FLUID NEUTROPHILS 19 %; FLUID RBC EST 1+; FLUID WBC'S 68 /cmm
--- NOTE | 2016-04-04 16:22 | RADRPT ---
PROCEDURE: XR Chest. CLINICAL INDICATION: Status post thoracentesis. TECHNIQUE: Single frontal view of the chest was obtained COMPARISON: CT scan of the chest 04/03/2016. FINDINGS: The heart is enlarged. There are vascular calcifications in the aortic arch. There is a 3 ml calci fied granuloma in the periphery of the left upper lobe also seen on the CT scan of 04/03/2016. Ther e are infiltrates in the left lower lobe and lingula. There is a suboptimal inspiratory effort with osteophytes in the thoracic spine. No pneumothorax is noted. IMPRESSION: 1. Status post thoracentesis with a moderate-sized left pleural effusion identified with no pneumoth orax. 2. 3 mm calcified granuloma in the periphery of the left upper lobe with infiltrates in the left lo wer lobe and lingula. 3. Spondylosis of the thoracic spine. 4. Atherosclerotic vascular disease. RPTAT:AAJJ Physician Tristen Date Time Electronically viewed and signed by Esau Diaz Physician on 04/04/2016 16:21 NADIA/
[2016-04-04] MEDS: AZITHROMYCIN 500MG/NS (PMX) 250 ML IVPB SCH (16:54)
[2016-04-04 17:36] LABS: FLUID GLUCOSE 107 mg/dl; FLUID LD 150 U/L; FLUID TOTAL PROTEIN < 2.0 g/dl; FLUID TYPE PLEURAL FLUID
--- NOTE | 2016-04-04 17:54 | RADRPT ---
PROCEDURE: US guided left thoracentesis. CLINICAL INDICATION: Shortness of breath. Left pleural effusion. TECHNIQUE: Prior to the procedure, informed consent was obtained. The risks, benefits, and alternatives were e xplained to the patient or the patient's family, including but not limited to bleeding, infection, p ain, visceral or vascular damage, shock, pneumothorax, chest tube placement, air embolism, and . The patient or the patient's family understood the risks and the alternatives and wished to proce ed with the study. Informed written consent was obtained. A procedural pause was performed. The patient's name, date of , and procedure to be performed were verified. Ultrasound of the left hemithorax was performed in the axial and sagittal planes. A left pleural eff usion is noted. Utilizing ultrasound guidance, optimal location for entry to the pleural cavity was ascertained. The overlying skin was prepped and draped in the usual sterile fashion. Approximately 10 ml of 1% Xylocaine was injected locally for pain control. Using ultrasound guidance, a 5-Italian Yueh catheter was introduced into the left pleural space without difficulty. Fluid was aspirated. COMPARISON: None. FINDINGS: Initial ultrasound demonstrates fluid in the left pleural space. Approximately 1.1 liters of serous fluid was aspirated and sent to the laboratory. IMPRESSION: 1. Satisfactory ultrasound-guided left thoracentesis. RPTAT: QQ .Gurinder Garcia MD, Date Time Electronically viewed and signed by .Gurinder Garcia MD, on 04/04/2016 17:54 .R/
--- NOTE | 2016-04-04 19:27 | PN ---
Date/Time of Note Date/Time of Note DATE: 04/04/16 TIME: 19:27 Assessment/Plan Lines/Catheters IV Catheter Type (from [facility]): Saline Lock Myrick in Place (from [facility]): No Assessment/Plan Chief Complaint/Hosp Course 1. Abdominal mass versus hypersplenism. DDx: Malignancy vs Infectious ( bacterial or viral) vs other. Cytology noted and non diagnostic. -w/u per heme/onc -ct or us guided bx 2. Left pleural effusion s/p thora 3. Anemia without evidence of acute blood loss. Continue close observation. 4. Leukocytosis. Continue medical workup and management. 5. Thrombocytosis as above. 6. Hypoalbuminemia is probably multifactorial; however, will benefit from eventual nutritional optimization. 7. Hypertension. Continue diet and medication control. 8. Ulcerative colitis. Continue medical management. 9. History of prostate cancer. Continue a oncologic workup and evaluation. Thank you Problems: Subjective 24 Hr Interval Summary Minimal pain. No nausea vomiting. No fevers or chills. No chest pain shortness of breath. No visual or neurologic changes. No dysuria. Bowel function. Workup in process. Exam/Review of Systems Vital Signs Vitals Vital Signs Date Time Temp Pulse Resp B/P Pulse Ox O2 Delivery O2 Flow Rate FiO2 04/05/16 20:21 86 04/05/16 20:11 98.1 20 133/81 94 04/05/16 16:00 Room Air 04/05/16 15:55 2.0 Intake and Output 04/04/16 04/04/16 04/05/16 15:00 23:00 07:00 Intake Total 1020 ml 300 ml Output Total 1100 ml Balance -80 ml 300 ml Exam Constitutional: alert, oriented, No distress Psych: nl mood/affect, No anxiety Head: atraumatic, normocephalic Eyes: EOMI, PERRL, nl conjunctiva, No icteric ENMT: mucosa pink and moist, nl external ears & nose, nl lips & teeth Neck: non-tender, supple, No jvd Respiratory: normal air movement, No congested cough, No labored breathing Cardiovascular: regular rate and rhythm, No edema Gastrointestinal: soft, tender (minimal), No distended, No rebound or guarding Genitourinary - Male: nl penis, nl scrotum Musculoskeletal: nl extremities to inspection, nl gait and stance, No joint tenderness Extremities: normal pulses, No calf tenderness, No edema Neurological: nl mental status, nl speech, nl strength Skin: nl turgor, No diaphoresis, No rash or lesions Lymph: nl lymph nodes Results Result Diagram: 04/05/16 0555 04/05/16 0555 WILLIAM PENA MD Apr 04, 2016 19:27
--- NOTE | 2016-04-04 23:25 | CONS ---
DATE OF ADMISSION: 04/03/2016 DATE OF CONSULTATION: 04/03/2016 TYPE OF CONSULTATION: Surgical. REFERRING PHYSICIAN: Lobito Moralez MD CHIEF COMPLAINT 1. Abdominal pain. 2. 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 3. Pleural effusion. 4. History of prostate cancer. 5. Anemia. 5. Leukocytosis. HISTORY OF PRESENT ILLNESS: Mr. Rudi Castro is a 80-year-old male with multiple comorbidities, mos t specifically history of prostate cancer who presents with abdominal bloating and pain without naus ea, vomiting, fevers or chills. He has unintentional 15 pound weight loss over the past 3 months. He has decreased appetite. He has night sweats and generalized fatigue. He denies dysuria, sick co ntacts or trauma. On his workup in the emergency room, he was found to have a left-sided pleural effusion and a large mass, questionable spleen that is hypervascular in the left upper quadrant that is 22 x 21 x 17 cm. Surgical consult was obtained for further evaluation and treatment. PAST MEDICAL HISTORY: 1. Prostate cancer. 2. Left-sided pleural effusion. 3. Heterogeneous hypervascular mass in the left upper quadrant, 22 x 21 x 17 cm, possible spleen ve rsus mass. 4. Unexplained weight loss. 5. Diarrhea. 6. Fatigue. 7. Essential hypertension. 7. Hyperlipidemia. 8. Ulcerative colitis. 9. History of radiation for prostate cancer. 10. Gastrointestinal bleed. 11. Anemia of chronic disease. 12. Shortness of breath. 13. Alcohol, significant use. 14. Thrombocytosis. 15. Hypoalbuminemia. 16. Hypocalcemia. 17. Elevated hemoglobin A1c. 18. Leukocytosis. PAST SURGICAL HISTORY: 1. Seed placement for prostate cancer. 2. Colonoscopy October of 2015. 3. MOHS. FAMILY HISTORY: Noncontributory. SOCIAL HISTORY: Drinks 2 to 3 pretty per day. Former smoker, a [id number] smoker. No recreationa l drugs. REVIEW OF SYSTEMS: A 12-point review of systems negative unless addressed in the HPI. PHYSICAL EXAMINATION VITAL SIGNS: Temperature is 98.2, pulse 80s, blood pressure 150/70, saturating 100%. GENERAL: No acute distress, comfortable, pleasant. HEENT: Pupils equal, reactive. No scleral icterus. Mucous membranes somewhat dry. NECK: No crepitus, no JVD. PULMONARY: Normal respiratory effort. No wheezing. Decreased breath sounds on the left. CARDIAC: S1, S2 present. ABDOMEN: Soft, minimally tender without rebound, no guarding. Not rigid. EXTREMITIES: No edema. VASCULAR: Cap refill less than 2 seconds. NEUROLOGIC: Alert, oriented, moves all 4 extremities grossly. LYMPHATICS: Nonpalpable cervical or inguinal lymph nodes. LABORATORY DATA: WBC 14, H and H 11.9/36, platelets 579. Chemistries mostly normal. Calcium is 8. 2, albumin is 2.5. Coags are within normal. RADIOGRAPHIC DATA: As per chart. ASSESSMENT AND PLAN: Rudi Castro is a 80-year-old male with multiple significant comorbidities. 1. Abdominal pain with large abdominal mass, questionable hypersplenism with fatigue, weight loss a nd decreased appetite. Differential diagnosis is malignancy including lymphoma versus other, versus infectious or viral etiology. Workup per heme/onc underway. May need eventual biopsy of the lesio n. 2. Left pleural effusion. Recommend thoracentesis to obtain the fluid for cytology and improve sym ptoms. 3. Anemia without evidence of acute blood loss. Continue close observation. 4. Leukocytosis. Continue medical workup and management. 5. Thrombocytosis as above. 6. Hypoalbuminemia is probably multifactorial; however, will benefit from eventual nutritional opti mization. 7. Hypertension. Continue diet and medication control. 8. Ulcerative colitis. Continue medical management. 9. History of prostate cancer. Continue a oncologic workup and evaluation. Thank you very much for consulting me in this patient's care. Dictated By: WILLIAM COHEN/URIAH Conf#: [id number] DID#: [id number]
[2016-04-05] VITALS (19 sets, daily range): BP systolic 108–163; BP diastolic 59–85; PULSE 76–100; RESP 18–20
[2016-04-05 07:22] LABS: POTASSIUM 4.1 mmol/L (3.5-5.1)
[2016-04-05 07:24] LABS: CREATININE 0.69 mg/dl (0.61-1.24)
[2016-04-05 07:35] LABS: BASOPHILS % 0.1 % (0.0-2.0); HEMATOCRIT 35.2 % (42.0-52.0); HEMOGLOBIN 11.5 g/dl (14.0-18.0); LYMPHOCYTES # 1.4 10^3/ul (0.8-2.9); LYMPHOCYTES % 11.9 % (15.0-51.0); MEAN CORPUSCULAR HGB CONC 32.7 g/dl (32.0-37.0); MEAN CORPUSCULAR VOLUME 85.5 fl (82.0-101.0); MEAN PLATELET VOLUME 7.2 fl (7.4-10.4); MONOCYTE # 0.8 10^3/ul (0.3-0.9); NEUTROPHIL # 9.7 10^3/ul (1.6-7.5); PLATELET COUNT 545 10^3/UL (140-440); RED BLOOD COUNT 4.11 10^6/ul (4.70-6.10); RED CELL DISTRIBUTION WIDTH 16.3 % (11.5-14.5)
[2016-04-05 07:58] LABS: CONDITION 1; LH ANALYZER COMMENTS 1
[2016-04-05] MEDS: ENOXAPARIN 40 MG/0.4 ML SYG SC SCH (08:24)
[2016-04-05] MEDS: FAMOTIDINE 20 MG INJ IV SCH ×2 (08:24→20:05)
[2016-04-05 12:07] LABS: INR 1.17; PT RATIO 1.2
[2016-04-05 12:08] LABS: PARTIAL THROMBOPLASTIN TIME 29.7 Sec (25.0-35.0)
--- NOTE | 2016-04-05 12:49 | CONS ---
Date/Time of Note Date/Time of Note DATE: 04/05/16 TIME: 12:46 Assessment/Plan Assessment/Plan Additional Assessment/Plan Assessment and recommendations; 1. Patient admitted with fatigue and shortness of breath discovered to have left pleural effusion as well as a very large perisplenic mass, etiology is unclear at this point. 2. History of ulcerative colitis. 3. History of prostate cancer. Continue current treatment. Awaiting pleural fluid cytology as well as flow cytometry results. If those are nondiagnostic, patient likely will need to have a laparotomy done. Consultation Date/Type/Reason Admit Date/Time Apr 03, 2016 at 15:36 Type of Consultation: Pulmonary Referring Provider: SALVATORE SANDRA MD 24 HR Interval Summary Free Text/Dictation Patient condition is stable. Denies any shortness of breath. Patient underwent left thoracentesis yesterday 1.1 L of serous fluid was removed. Studies are pending on the fluid. Patient denies any fever chills any abdominal pain. General examination; elderly male, currently in no distress. Exam/Review of Systems Vital Signs Vitals Vital Signs Date Time Temp Pulse Resp B/P Pulse Ox O2 Delivery O2 Flow Rate FiO2 04/05/16 12:16 76 04/05/16 12:00 97.6 20 156/85 98 04/05/16 08:27 Nasal Cannula 2.0 Intake and Output 04/04/16 04/04/16 04/05/16 15:00 23:00 07:00 Intake Total 1020 ml 300 ml Output Total 1100 ml Balance -80 ml 300 ml Exam H EENT examination; supple neck, no JVD. No lymphadenopathy. No thyromegaly. Pharynx is clear. Chest examination; clear to auscultation. S1-S2 audible, no murmurs. Regular rhythm. Abdomen examination; there is mild left upper quadrant fullness and tenderness. No organomegaly felt. Bowel sounds audible. Extremity examination; no peripheral edema. [employer] examination; no focal deficit. Results Result Diagram: 04/05/16 0555 04/05/16 0555 Results 24 hrs Laboratory Tests Test 04/04/16 14:00 04/05/16 05:55 04/05/16 11:35 Body Fluid Appearance CLEAR Body Fluid Color GREEN Body Fluid Glucose 107 Body Fluid Lactate Dehydrogenase 150 Body Fluid Lymphocytes (%) 56 Body Fluid Monocytes % 16 Body Fluid Neutrophils % 19 Body Fluid Other Cells (%) Body Fluid RBC 1+ Body Fluid Total Protein < 2.0 Body Fluid Type PLEURAL FLUID Body Fluid Volume 1000.0 Body Fluid WBC 68 Anion Gap 11 Basophils # 0.0 Basophils % 0.1 Blood Morphology Comment Blood Urea Nitrogen 12 Calcium Level 8.0 L Carbon Dioxide Level 28 Chloride Level 100 Creatinine 0.69 Eosinophils # 0.0 Eosinophils % 0.0 Glucose Level 88 Hematocrit 35.2 L Hemoglobin 11.5 L Lymphocytes # 1.4 Lymphocytes % 11.9 L Magnesium Level 2.0 Mean Corpuscular Hemoglobin 28.0 L Mean Corpuscular Hemoglobin Concent 32.7 Mean Corpuscular Volume 85.5 Mean Platelet Volume 7.2 L Monocytes # 0.8 Monocytes % 7.0 Neutrophils # 9.7 H Neutrophils % 81.0 H Nucleated Red Blood Cells # 0.0 Nucleated Red Blood Cells % 0.0 Platelet Count 545 H Potassium Level 4.1 Red Blood Count 4.11 L Red Cell Distribution Width 16.3 H Sodium Level 135 White Blood Count 12.0 H Activated Partial Thromboplast Time 29.7 INR International Normalized Ratio 1.17 Prothrombin Time 15.0 H Prothrombin Time Ratio 1.2 Medications Medications Current Medications Lorazepam (Ativan) 0.5 mg Q6H PRN IV ANXIETY Last administered on 04/04/16 12: 38; Admin Dose 0.5 MG; Start 04/03/16 at 16:00 Ondansetron HCl (Zofran Inj) 4 mg Q6H PRN IV NAUSEA AND/OR VOMITING; Start 02/05 at 16:00 Nitroglycerin (Nitroglycerin (Sl Tab) 0.4 Mg) 1 tab Q5M PRN SL CHEST PAIN; Start 04/03/16 at 16:00 Acetaminophen (Tylenol Tab) 650 mg Q6H PRN PO PAIN LEVEL 1-3 OR FEVER Last administered on 04/04/16 23:20; Admin Dose 650 MG; Start 04/03/16 at 16:00 Morphine Sulfate (morphine) 2 mg Q4H PRN IV PAIN LEVEL 7-10; Start 04/03/16 at 16:00 Docusate Sodium (Colace) 100 mg Q12H PRN PO CONSTIPATION; Start 04/03/16 at 16: 00 Famotidine (Pepcid Iv) 20 mg Q12 IV Last administered on 04/05/16 08:24; Admin Dose 20 MG; Start 04/03/16 at 21:00 Enoxaparin Sodium 40 mg 40 mg DAILY SC ; Start 04/04/16 at 09:00 Ceftriaxone Sodium 50 ml @ 100 mls/hr Q24H IVPB Last administered on 15:35; Admin Dose 100 MLS/HR; Start 04/04/16 at 15:00 Azithromycin (Zithromax 500mg/ NS (Pmx)) 250 ml @ 250 mls/hr Q24H IVPB Last administered on 04/04/16 16:54; Admin Dose 250 MLS/HR; Start 04/04/16 at 16:00 NATASHA RIVAS Apr 05, 2016 12:49
[2016-04-05] MEDS ORDERED: SOD CHLORIDE 0.9% 500 ML ONE (14:27)
[2016-04-05] MEDS ORDERED: GELATIN 12MM X 7 MM SPONGE ONE (14:27)
[2016-04-05] MEDS ORDERED: LIDOCAINE 1% (MDV) 20 ML INJ ONE (14:27)
[2016-04-05] MEDS ORDERED: FENTAnyl 50 MCG/ML VIAL ONE (14:27)
[2016-04-05] MEDS ORDERED: MIDAZOLAM 1 MG/ML 2 ML INJ ONE (14:27)
--- NOTE | 2016-04-05 14:53 | CONS ---
Date/Time of Note Date/Time of Note DATE: 04/05/16 TIME: 14:50 Assessment/Plan Assessment/Plan Chief Complaint/Hosp Course 80 yo male with history of prostate cancer, with 20 lb weight loss over 3 months , who presents with a L sided pleural effusion as well as a large heterogeneous hypervascular mass in the left upper quadrant of the abdomen which measures 22 x 21 x 17 cm. At this point I am definitively concerned for an underlying malignancy as the underlying cause of this pleural effusion and abdominal mass. This far LDH is normal which makes a high grade lymphoma less likely although this does not rule out lymphoma all together. Cytology is negative from pleural fluid -Primary team to order CT Guided biopsy on this mass for tissue diagnosis. -understand that there is an increased risk of bleed. Surgery is on board as well Approximately 40 min were spent at patient's bedside and in coordination of his care Problems: Consultation Date/Type/Reason Admit Date/Time Apr 03, 2016 at 15:36 Initial Consult Date 04/04/16 Type of Consultation: Pulmonary Reason for Consultation abdominal mass Referring Provider: SALVATORE SANDRA MD 24 HR Interval Summary Free Text/Dictation pt is s/p thoracentesis.fluid cytology is negative Exam/Review of Systems Vital Signs Vitals Vital Signs Date Time Temp Pulse Resp B/P Pulse Ox O2 Delivery O2 Flow Rate FiO2 04/05/16 12:16 76 04/05/16 12:00 97.6 20 156/85 98 04/05/16 08:27 Nasal Cannula 2.0 Intake and Output 04/04/16 04/04/16 04/05/16 15:00 23:00 07:00 Intake Total 1020 ml 300 ml Output Total 1100 ml Balance -80 ml 300 ml Exam Constitutional: alert, oriented Head: atraumatic, normocephalic ENMT: nl external ears & nose Neck: supple Respiratory: crackles/rales, diminished breath sounds (in left lung) Gastrointestinal: soft Musculoskeletal: nl extremities to inspection, nl gait and stance Extremities: normal pulses Results Result Diagram: 04/05/16 0555 04/05/16 0555 Results 24 hrs Laboratory Tests Test 04/05/16 05:55 04/05/16 11:35 Anion Gap 11 Basophils # 0.0 Basophils % 0.1 Blood Morphology Comment Blood Urea Nitrogen 12 Calcium Level 8.0 L Carbon Dioxide Level 28 Chloride Level 100 Creatinine 0.69 Eosinophils # 0.0 Eosinophils % 0.0 Glucose Level 88 Hematocrit 35.2 L Hemoglobin 11.5 L Lymphocytes # 1.4 Lymphocytes % 11.9 L Magnesium Level 2.0 Mean Corpuscular Hemoglobin 28.0 L Mean Corpuscular Hemoglobin Concent 32.7 Mean Corpuscular Volume 85.5 Mean Platelet Volume 7.2 L Monocytes # 0.8 Monocytes % 7.0 Neutrophils # 9.7 H Neutrophils % 81.0 H Nucleated Red Blood Cells # 0.0 Nucleated Red Blood Cells % 0.0 Platelet Count 545 H Potassium Level 4.1 Red Blood Count 4.11 L Red Cell Distribution Width 16.3 H Sodium Level 135 White Blood Count 12.0 H Activated Partial Thromboplast Time 29.7 INR International Normalized Ratio 1.17 Prothrombin Time 15.0 H Prothrombin Time Ratio 1.2 Medications Medications Current Medications Lorazepam (Ativan) 0.5 mg Q6H PRN IV ANXIETY Last administered on 04/04/16 12: 38; Admin Dose 0.5 MG; Start 04/03/16 at 16:00 Ondansetron HCl (Zofran Inj) 4 mg Q6H PRN IV NAUSEA AND/OR VOMITING; Start 02/05 at 16:00 Nitroglycerin (Nitroglycerin (Sl Tab) 0.4 Mg) 1 tab Q5M PRN SL CHEST PAIN; Start 04/03/16 at 16:00 Acetaminophen (Tylenol Tab) 650 mg Q6H PRN PO PAIN LEVEL 1-3 OR FEVER Last administered on 04/04/16 23:20; Admin Dose 650 MG; Start 04/03/16 at 16:00 Morphine Sulfate (morphine) 2 mg Q4H PRN IV PAIN LEVEL 7-10; Start 04/03/16 at 16:00 Docusate Sodium (Colace) 100 mg Q12H PRN PO CONSTIPATION; Start 04/03/16 at 16: 00 Famotidine (Pepcid Iv) 20 mg Q12 IV Last administered on 04/05/16 08:24; Admin Dose 20 MG; Start 04/03/16 at 21:00 Enoxaparin Sodium 40 mg 40 mg DAILY SC ; Start 04/04/16 at 09:00 Ceftriaxone Sodium 50 ml @ 100 mls/hr Q24H IVPB Last administered on 15:35; Admin Dose 100 MLS/HR; Start 04/04/16 at 15:00 Azithromycin (Zithromax 500mg/ NS (Pmx)) 250 ml @ 250 mls/hr Q24H IVPB Last administered on 04/04/16 16:54; Admin Dose 250 MLS/HR; Start 04/04/16 at 16:00 LUPE TAYLOR M.D. Apr 05, 2016 14:53
[2016-04-05] MEDS: CEFTRIAXONE 1 GM/50 ML (PMX) 50 ML IVPB SCH (15:00)
[2016-04-05 15:27] LABS: PSA, FREE <0.1 ng/mL
--- NOTE | 2016-04-05 16:49 | PN ---
Date/Time of Note Date/Time of Note DATE: 04/05/16 TIME: 16:46 Assessment/Plan VTE Prophylaxis VTE Prophylaxis Intervention: SCD's Lines/Catheters IV Catheter Type (from [facility]): Saline Lock Urinary Cath still in place: No Assessment/Plan Chief Complaint/Hosp Course Assessment/Plan 1. Shortness of breath - moderate sized left pleural effusion -status post thoracentesis, pulm consulted-negative cytology 2. 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 infectious ) - consult hem/onc, surgery, check tumor markers, status post CT guided biopsy 4. UC - active - consult to GI - IV steroids 5. Anemia of chronic disease - continue to monitor 6. Essential Hypertension - hold meds if systolic blood pressure is less than 110, 7. Prostate CA s/p seeding -follow-up PSA level 8. Dyslipidemia - hold statin 9. ETOH abuse - counseled patient on cessation 10. GI ppx - protonix 11. DVT ppx - lovenox CODE STATUS - DNR/DNI We will continue monitor patient closely for recommendation management treatment as clinical course Problems: Subjective 24 Hr Interval Summary Free Text/Dictation Patient denies any chest pain or shortness of breath Status post thoracocentesis and and removal of 1.5 L of fluids Status post biopsy today Patient denies of having any abdominal pain Exam/Review of Systems Vital Signs Vitals Vital Signs Date Time Temp Pulse Resp B/P Pulse Ox O2 Delivery O2 Flow Rate FiO2 04/05/16 14:55 Nasal Cannula 3 04/05/16 12:16 76 04/05/16 12:00 97.6 20 156/85 98 Intake and Output 04/04/16 04/04/16 04/05/16 15:00 23:00 07:00 Intake Total 1020 ml 300 ml Output Total 1100 ml Balance -80 ml 300 ml Exam General: The patient is well-developed, Not in acute distress. HEENT: Atraumatic, normocephalic. The pupils are equal and round . Neck: Supple with full range of motion. Chest: Normal expansion of the thorax during inspiration Lungs: Decreased breath sounds left lower lung field Heart: Normal S1-S2, Regular rhythm and rate. Abdomen: Soft , nontender, nondistended , bowel sounds are present. Extremities: Normal to inspection, no edema no cyanosis Neurologic: Normal mental status,The patient is awake, alert and oriented . Results Result Diagram: 04/05/16 0555 04/05/16 0555 Results 24 hrs Laboratory Tests Test 04/05/16 05:55 04/05/16 11:35 Anion Gap 11 Basophils # 0.0 Basophils % 0.1 Blood Morphology Comment Blood Urea Nitrogen 12 Calcium Level 8.0 L Carbon Dioxide Level 28 Chloride Level 100 Creatinine 0.69 Eosinophils # 0.0 Eosinophils % 0.0 Glucose Level 88 Hematocrit 35.2 L Hemoglobin 11.5 L Lymphocytes # 1.4 Lymphocytes % 11.9 L Magnesium Level 2.0 Mean Corpuscular Hemoglobin 28.0 L Mean Corpuscular Hemoglobin Concent 32.7 Mean Corpuscular Volume 85.5 Mean Platelet Volume 7.2 L Monocytes # 0.8 Monocytes % 7.0 Neutrophils # 9.7 H Neutrophils % 81.0 H Nucleated Red Blood Cells # 0.0 Nucleated Red Blood Cells % 0.0 Platelet Count 545 H Potassium Level 4.1 Red Blood Count 4.11 L Red Cell Distribution Width 16.3 H Sodium Level 135 White Blood Count 12.0 H Activated Partial Thromboplast Time 29.7 INR International Normalized Ratio 1.17 Prothrombin Time 15.0 H Prothrombin Time Ratio 1.2 Medications Medications Current Medications Lorazepam (Ativan) 0.5 mg Q6H PRN IV ANXIETY Last administered on 04/04/16 12: 38; Admin Dose 0.5 MG; Start 04/03/16 at 16:00 Ondansetron HCl (Zofran Inj) 4 mg Q6H PRN IV NAUSEA AND/OR VOMITING; Start 02/05 at 16:00 Nitroglycerin (Nitroglycerin (Sl Tab) 0.4 Mg) 1 tab Q5M PRN SL CHEST PAIN; Start 04/03/16 at 16:00 Acetaminophen (Tylenol Tab) 650 mg Q6H PRN PO PAIN LEVEL 1-3 OR FEVER Last administered on 04/04/16 23:20; Admin Dose 650 MG; Start 04/03/16 at 16:00 Morphine Sulfate (morphine) 2 mg Q4H PRN IV PAIN LEVEL 7-10; Start 04/03/16 at 16:00 Docusate Sodium (Colace) 100 mg Q12H PRN PO CONSTIPATION; Start 04/03/16 at 16: 00 Famotidine (Pepcid Iv) 20 mg Q12 IV Last administered on 04/05/16 08:24; Admin Dose 20 MG; Start 04/03/16 at 21:00 Enoxaparin Sodium 40 mg 40 mg DAILY SC ; Start 04/04/16 at 09:00 Ceftriaxone Sodium 50 ml @ 100 mls/hr Q24H IVPB Last administered on 15:00; Admin Dose 100 MLS/HR; Start 04/04/16 at 15:00 Azithromycin (Zithromax 500mg/ NS (Pmx)) 250 ml @ 250 mls/hr Q24H IVPB Last administered on 04/04/16 16:54; Admin Dose 250 MLS/HR; Start 04/04/16 at 16:00 DIAN VIEYRA MD Apr 05, 2016 16:48
--- NOTE | 2016-04-05 16:59 | RADRPT ---
PROCEDURE: CT guided left upper quadrant mass biopsy. CLINICAL INDICATION: Left upper quadrant abdomen mass. TECHNIQUE: Informed consent was obtained. The procedure, risks, benefits, complications and alternatives were e xplained to the patient. Risks including bleeding and infection were explained. The patient understo od and was willing to proceed. A procedural pause was performed. The patient's name, date of , and procedure to be performed were verified. One or more of the following dose reduction techniqu es were used: Automated exposure control, adjustment of the mA and/or kV according to patient size, use of iterative reconstruction technique. Using local anesthetic, sterile technique and CT guidance, a 20-gauge automated core biopsy needle w as used to biopsy the inferior portion of the mass in the left upper quadrant of the abdomen. Multi ple passes were made. Adequate tissue was obtained according to the pathologist present during the procedure. The needle was removed during injection of multiple Gelfoam pledgets. A postprocedural scan was performed. A dressing was applied. The patient tolerated procedure well. COMPARISON: None. FINDINGS: Initial images demonstrate the tip of the needle at the periphery of the lesion in question. Post biopsy images demonstrate no immediate complication. IMPRESSION: 1. Successful CT guided left upper quadrant abdomen mass biopsy. RPTAT: QQ .Gurinder Garcia MD, MD Date Time Electronically viewed and signed by .Gurinder Garcia MD, on 04/05/2016 16:59 .R/
[2016-04-05] MEDS: AZITHROMYCIN 500MG/NS (PMX) 250 ML IVPB SCH (17:27)
--- NOTE | 2016-04-05 20:56 | PN ---
Date/Time of Note Date/Time of Note DATE: 04/05/16 TIME: 20:54 Assessment/Plan Lines/Catheters IV C[facility] Type (from [facility] Saline Lock Myrick in Place (from [facility]): No Assessment/Plan Chief Complaint/Hosp Course 1. Abdominal mass versus hypersplenism. DDx: Malignancy vs Infectious ( bacterial or viral) vs other. Cytology noted and non diagnostic. -w/u per heme/onc -ct or us guided bx 2. Left pleural effusion s/p thora 3. Anemia without evidence of acute blood loss. Continue close observation. 4. Leukocytosis. Continue medical workup and management. 5. Thrombocytosis as above. 6. Hypoalbuminemia is probably multifactorial; however, will benefit from eventual nutritional optimization. 7. Hypertension. Continue diet and medication control. 8. Ulcerative colitis. Continue medical management. 9. History of prostate cancer. Continue a oncologic workup and evaluation. Thank you Problems: Subjective 24 Hr Interval Summary Thoracentesis non diagnostic. IR bx of lesion pending. Minimal pain. No nausea vomiting. No fevers or chills. No chest pain shortness of breath. No visual or neurologic changes. No dysuria. Bowel function. Workup in process. Exam/Review of Systems Vital Signs Vitals Vital Signs Date Time Temp Pulse Resp B/P Pulse Ox O2 Delivery O2 Flow Rate FiO2 04/05/16 20:21 86 04/05/16 20:11 98.1 20 133/81 94 04/05/16 16:00 Room Air 04/05/16 15:55 2.0 Intake and Output 04/04/16 04/04/16 04/05/16 15:00 23:00 07:00 Intake Total 1020 ml 300 ml Output Total 1100 ml Balance -80 ml 300 ml Exam Free Text/Dictation Constitutional: alert, oriented, No distress Psych: nl mood/affect, No anxiety Head: atraumatic, normocephalic Eyes: EOMI, PERRL, nl conjunctiva, No icteric ENMT: mucosa pink and moist, nl external ears & nose, nl lips & teeth Neck: non-tender, supple, No jvd Respiratory: normal air movement, No congested cough, No labored breathing Cardiovascular: regular rate and rhythm, No edema Gastrointestinal: soft, tender (minimal), No distended, No rebound or guarding Genitourinary - Male: nl penis, nl scrotum Musculoskeletal: nl extremities to inspection, nl gait and stance, No joint tenderness Extremities: normal pulses, No calf tenderness, No edema Neurological: nl mental status, nl speech, nl strength Skin: nl turgor, No diaphoresis, No rash or lesions Lymph: nl lymph nodes Results Result Diagram: 04/05/16 0555 04/05/16 0555 WILLIAM PENA MD Apr 05, 2016 20:56
[2016-04-06] VITALS (8 sets, daily range): BP systolic 128–156; BP diastolic 71–81; PULSE 81–92; RESP 20
[2016-04-06 07:07] LABS: BASOPHILS % 0.1 % (0.0-2.0); HEMATOCRIT 34.4 % (42.0-52.0); HEMOGLOBIN 11.2 g/dl (14.0-18.0); LYMPHOCYTES # 1.3 10^3/ul (0.8-2.9); LYMPHOCYTES % 10.2 % (15.0-51.0); MEAN CORPUSCULAR HEMOGLOBIN 27.9 pg (29.0-33.0); MEAN CORPUSCULAR HGB CONC 32.6 g/dl (32.0-37.0); MEAN CORPUSCULAR VOLUME 85.6 fl (82.0-101.0); MONOCYTE # 0.9 10^3/ul (0.3-0.9); MONOCYTES % 6.9 % (0.0-11.0); NEUTROPHIL # 10.4 10^3/ul (1.6-7.5); NEUTROPHILS % 82.8 % (39.0-77.0); PLATELET COUNT 529 10^3/UL (140-440); RED BLOOD COUNT 4.01 10^6/ul (4.70-6.10); RED CELL DISTRIBUTION WIDTH 16.8 % (11.5-14.5); UNCORRECTED WBC 12.6 10^3/ul (4.8-10.8); WHITE BLOOD COUNT 12.6 10^3/ul (4.8-10.8)
[2016-04-06 07:12] LABS: ALBUMIN 2.1 g/dl (3.3-4.9)
[2016-04-06 07:13] LABS: POTASSIUM 4.3 mmol/L (3.5-5.1)
[2016-04-06 07:15] LABS: ALBUMIN/GLOBULIN RATIO 0.87; CREATININE 0.75 mg/dl (0.61-1.24); TOTAL PROTEIN 4.5 g/dl (6.1-8.1)
[2016-04-06 07:16] LABS: MAGNESIUM 2.1 mg/dl (1.7-2.5)
[2016-04-06 07:20] LABS: CONDITION 1; LH ANALYZER COMMENTS 1
[2016-04-06] MEDS: FAMOTIDINE 20 MG INJ IV SCH (08:46)
[2016-04-06] MEDS: ENOXAPARIN 40 MG/0.4 ML SYG SC SCH (08:53)
--- NOTE | 2016-04-06 10:31 | PN ---
Date/Time of Note Date/Time of Note DATE: 04/06/16 TIME: 10:29 Assessment/Plan VTE Prophylaxis VTE Prophylaxis Intervention: LMWH Lines/Catheters IV Catheter Type (from [facility]): Saline Lock Urinary Cath still in place: No Assessment/Plan Assessment/Plan 1. Shortness of breath - moderate sized left pleural effusion -status post thoracentesis, pulm consulted-negative cytology 2. 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 infectious ) - consult hem/onc, surgery, check tumor markers, status post CT guided biopsy 4. UC - active - consult to GI - IV steroids 5. Anemia of chronic disease - continue to monitor 6. Essential Hypertension - hold meds if systolic blood pressure is less than 110, 7. Prostate CA s/p seeding -follow-up PSA level 8. Dyslipidemia - hold statin 9. ETOH abuse - counseled patient on cessation 10. GI ppx - protonix 11. DVT ppx - lovenox CODE STATUS - DNR/DNI We will continue monitor patient closely for recommendation management treatment as clinical course Subjective 24 Hr Interval Summary Free Text/Dictation s/p CT guided biopsy, BP stable , afebrile Exam/Review of Systems Vital Signs Vitals Vital Signs Date Time Temp Pulse Resp B/P Pulse Ox O2 Delivery O2 Flow Rate FiO2 04/06/16 08:26 82 04/06/16 07:45 98.5 20 147/75 97 04/05/16 22:29 Nasal Cannula 2.0 Intake and Output 04/05/16 04/05/16 04/06/16 14:59 22:59 06:59 Intake Total 800 ml 400 ml Balance 800 ml 400 ml Exam H EENT examination; supple neck, no JVD. No lymphadenopathy. No thyromegaly. Pharynx is clear. Chest examination; clear to auscultation. S1-S2 audible, no murmurs. Regular rhythm. Abdomen examination; there is mild left upper quadrant fullness and tenderness. Bowel sounds audible. Extremity examination; no peripheral edema. 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 Results Result Diagram: 04/06/16 0620 04/06/16 0620 Results 24 hrs Laboratory Tests Test 04/05/16 11:35 04/06/16 06:20 Activated Partial Thromboplast Time 29.7 INR International Normalized Ratio 1.17 Prothrombin Time 15.0 H Prothrombin Time Ratio 1.2 Alanine Aminotransferase (ALT/SGPT) 23 Albumin 2.1 L Albumin/Globulin Ratio 0.87 Alkaline Phosphatase 83 Anion Gap 9 Aspartate Amino Transf (AST/SGOT) 16 Basophils # 0.0 Basophils % 0.1 Blood Morphology Comment Blood Urea Nitrogen 15 Calcium Level 8.0 L Carbon Dioxide Level 27 Chloride Level 103 Creatinine 0.75 Direct Bilirubin 0.00 Eosinophils # 0.0 Eosinophils % 0.0 Globulin 2.40 Glucose Level 96 Hematocrit 34.4 L Hemoglobin 11.2 L Indirect Bilirubin 0.0 Lymphocytes # 1.3 Lymphocytes % 10.2 L Magnesium Level 2.1 Mean Corpuscular Hemoglobin 27.9 L Mean Corpuscular Hemoglobin Concent 32.6 Mean Corpuscular Volume 85.6 Mean Platelet Volume 7.0 L Monocytes # 0.9 Monocytes % 6.9 Neutrophils # 10.4 H Neutrophils % 82.8 H Nucleated Red Blood Cells # 0.0 Nucleated Red Blood Cells % 0.0 Platelet Count 529 H Potassium Level 4.3 Red Blood Count 4.01 L Red Cell Distribution Width 16.8 H Sodium Level 135 Total Bilirubin 0.0 L Total Protein 4.5 L White Blood Count 12.6 H Medications Medications Current Medications Lorazepam (Ativan) 0.5 mg Q6H PRN IV ANXIETY Last administered on 04/04/16 12: 38; Admin Dose 0.5 MG; Start 04/03/16 at 16:00 Ondansetron HCl (Zofran Inj) 4 mg Q6H PRN IV NAUSEA AND/OR VOMITING; Start 02/05 at 16:00 Nitroglycerin (Nitroglycerin (Sl Tab) 0.4 Mg) 1 tab Q5M PRN SL CHEST PAIN; Start 04/03/16 at 16:00 Acetaminophen (Tylenol Tab) 650 mg Q6H PRN PO PAIN LEVEL 1-3 OR FEVER Last administered on 04/04/16 23:20; Admin Dose 650 MG; Start 04/03/16 at 16:00 Morphine Sulfate (morphine) 2 mg Q4H PRN IV PAIN LEVEL 7-10; Start 04/03/16 at 16:00 Docusate Sodium (Colace) 100 mg Q12H PRN PO CONSTIPATION; Start 04/03/16 at 16: 00 Famotidine (Pepcid Iv) 20 mg Q12 IV Last administered on 04/06/16 08:46; Admin Dose 20 MG; Start 04/03/16 at 21:00 Enoxaparin Sodium 40 mg 40 mg DAILY SC Last administered on 04/06/16 08:53; Admin Dose 40 MG; Start 04/04/16 at 09:00 Ceftriaxone Sodium 50 ml @ 100 mls/hr Q24H IVPB Last administered on 15:00; Admin Dose 100 MLS/HR; Start 04/04/16 at 15:00 Azithromycin (Zithromax 500mg/ NS (Pmx)) 250 ml @ 250 mls/hr Q24H IVPB Last administered on 04/05/16 17:27; Admin Dose 250 MLS/HR; Start 04/04/16 at 16:00 FRANCISCO NARVAEZ MD Apr 06, 2016 10:31
--- NOTE | 2016-04-06 12:33 | CONS ---
Date/Time of Note Date/Time of Note DATE: 04/06/16 TIME: 12:31 Assessment/Plan Assessment/Plan Chief Complaint/Hosp Course 80 yo male with history of prostate cancer, with 20 lb weight loss over 3 months , who presents with a L sided pleural effusion as well as a large heterogeneous hypervascular mass in the left upper quadrant of the abdomen which measures 22 x 21 x 17 cm. At this point I am definitively concerned for an underlying malignancy as the underlying cause of this pleural effusion and abdominal mass. This far LDH is normal which makes a high grade lymphoma less likely although this does not rule out lymphoma all together. Cytology is negative from pleural fluid -f/u results from CT Guided biopsy on this mass for tissue diagnosis. -further recommendations will depend on results of above tests -ok for discharge from hematology standpoint.will f/y with patient's pcp Approximately 40 min were spent at patient's bedside and in coordination of his care Problems: Consultation Date/Type/Reason Admit Date/Time Apr 03, 2016 at 15:36 Initial Consult Date 04/04/16 Type of Consultation: Hematology Reason for Consultation abdominal mass biopsy Referring Provider: SALVATORE SANDRA MD 24 HR Interval Summary Free Text/Dictation s/p biopsy of abdominal mass lesion. minimal pain. no bleeding post biopsy Exam/Review of Systems Vital Signs Vitals Vital Signs Date Time Temp Pulse Resp B/P Pulse Ox O2 Delivery O2 Flow Rate FiO2 04/06/16 11:33 97.9 101 20 128/77 95 04/05/16 22:29 Nasal Cannula 2.0 Intake and Output 04/05/16 04/05/16 04/06/16 14:59 22:59 06:59 Intake Total 800 ml 400 ml Balance 800 ml 400 ml Exam Constitutional: alert, oriented Psych: nl mood/affect, no complaints Head: atraumatic, normocephalic Eyes: nl conjunctiva ENMT: nl external ears & nose Neck: non-tender, supple Respiratory: clear to auscultation Cardiovascular: regular rate and rhythm Gastrointestinal: other (mass felt in Left upper quadrant) Musculoskeletal: nl extremities to inspection, nl gait and stance Extremities: normal pulses Results Result Diagram: 04/06/16 0620 04/06/16 0620 Results 24 hrs Laboratory Tests Test 04/06/16 06:20 Alanine Aminotransferase (ALT/SGPT) 23 Albumin 2.1 L Albumin/Globulin Ratio 0.87 Alkaline Phosphatase 83 Anion Gap 9 Aspartate Amino Transf (AST/SGOT) 16 Basophils # 0.0 Basophils % 0.1 Blood Morphology Comment Blood Urea Nitrogen 15 Calcium Level 8.0 L Carbon Dioxide Level 27 Chloride Level 103 Creatinine 0.75 Direct Bilirubin 0.00 Eosinophils # 0.0 Eosinophils % 0.0 Globulin 2.40 Glucose Level 96 Hematocrit 34.4 L Hemoglobin 11.2 L Indirect Bilirubin 0.0 Lymphocytes # 1.3 Lymphocytes % 10.2 L Magnesium Level 2.1 Mean Corpuscular Hemoglobin 27.9 L Mean Corpuscular Hemoglobin Concent 32.6 Mean Corpuscular Volume 85.6 Mean Platelet Volume 7.0 L Monocytes # 0.9 Monocytes % 6.9 Neutrophils # 10.4 H Neutrophils % 82.8 H Nucleated Red Blood Cells # 0.0 Nucleated Red Blood Cells % 0.0 Platelet Count 529 H Potassium Level 4.3 Red Blood Count 4.01 L Red Cell Distribution Width 16.8 H Sodium Level 135 Total Bilirubin 0.0 L Total Protein 4.5 L White Blood Count 12.6 H Medications Medications Current Medications Lorazepam (Ativan) 0.5 mg Q6H PRN IV ANXIETY Last administered on 04/04/16 12: 38; Admin Dose 0.5 MG; Start 04/03/16 at 16:00 Ondansetron HCl (Zofran Inj) 4 mg Q6H PRN IV NAUSEA AND/OR VOMITING; Start 02/05 at 16:00 Nitroglycerin (Nitroglycerin (Sl Tab) 0.4 Mg) 1 tab Q5M PRN SL CHEST PAIN; Start 04/03/16 at 16:00 Acetaminophen (Tylenol Tab) 650 mg Q6H PRN PO PAIN LEVEL 1-3 OR FEVER Last administered on 04/04/16 23:20; Admin Dose 650 MG; Start 04/03/16 at 16:00 Morphine Sulfate (morphine) 2 mg Q4H PRN IV PAIN LEVEL 7-10; Start 04/03/16 at 16:00 Docusate Sodium (Colace) 100 mg Q12H PRN PO CONSTIPATION; Start 04/03/16 at 16: 00 Famotidine (Pepcid Iv) 20 mg Q12 IV Last administered on 04/06/16 08:46; Admin Dose 20 MG; Start 04/03/16 at 21:00 Enoxaparin Sodium 40 mg 40 mg DAILY SC Last administered on 04/06/16 08:53; Admin Dose 40 MG; Start 04/04/16 at 09:00 Ceftriaxone Sodium 50 ml @ 100 mls/hr Q24H IVPB Last administered on 15:00; Admin Dose 100 MLS/HR; Start 04/04/16 at 15:00 Azithromycin (Zithromax 500mg/ NS (Pmx)) 250 ml @ 250 mls/hr Q24H IVPB Last administered on 04/05/16 17:27; Admin Dose 250 MLS/HR; Start 04/04/16 at 16:00 LUPE TAYLOR M.D. Apr 06, 2016 12:33
--- NOTE | 2016-04-06 12:44 | CONS ---
Date/Time of Note Date/Time of Note DATE: 04/06/16 TIME: 12:41 Assessment/Plan Assessment/Plan Additional Assessment/Plan Assessment and recommendations; 1. Patient admitted with shortness of breath status post left thoracentesis with serous fluid drained about 1.1 L. Cytology results are pending. Very large left perisplenic mass. Status post CT-guided biopsy yesterday. Results are also pending. 3. History of prostate cancer. Continue current treatment for now awaiting biopsy results. Consultation Date/Type/Reason Admit Date/Time Apr 03, 2016 at 15:36 Type of Consultation: Pulmonary Referring Provider: SALVATORE SANDRA MD 24 HR Interval Summary Free Text/Dictation Patient condition is stable. Denies any shortness of breath. Any wheezing. Coughing, sputum production. Complains of mild pain at the CT-guided biopsy site in the left upper abdomen. General examination; elderly male, currently in no distress awake and alert. Exam/Review of Systems Vital Signs Vitals Vital Signs Date Time Temp Pulse Resp B/P Pulse Ox O2 Delivery O2 Flow Rate FiO2 04/06/16 11:33 97.9 101 20 128/77 95 04/05/16 22:29 Nasal Cannula 2.0 Intake and Output 04/05/16 04/05/16 04/06/16 15:00 23:00 07:00 Intake Total 800 ml 400 ml Balance 800 ml 400 ml Exam HEENT examination; supple neck, no JVD. No lymphadenopathy. Pharynx is clear. No neck masses. Chest examination; clear to auscultation bilaterally. S1-S2 audible, no murmurs. Regular rhythm. Abdomen examination; soft, there is mild left upper quadrant tenderness with mild soft tissue swelling. Bowel sounds are audible. No organomegaly felt. There is a small dressing applied in the left upper quadrant area as well Extremity examination; no peripheral edema. 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 Results Result Diagram: 04/06/16 0620 04/06/16 0620 Results 24 hrs Laboratory Tests Test 04/06/16 06:20 Alanine Aminotransferase (ALT/SGPT) 23 Albumin 2.1 L Albumin/Globulin Ratio 0.87 Alkaline Phosphatase 83 Anion Gap 9 Aspartate Amino Transf (AST/SGOT) 16 Basophils # 0.0 Basophils % 0.1 Blood Morphology Comment Blood Urea Nitrogen 15 Calcium Level 8.0 L Carbon Dioxide Level 27 Chloride Level 103 Creatinine 0.75 Direct Bilirubin 0.00 Eosinophils # 0.0 Eosinophils % 0.0 Globulin 2.40 Glucose Level 96 Hematocrit 34.4 L Hemoglobin 11.2 L Indirect Bilirubin 0.0 Lymphocytes # 1.3 Lymphocytes % 10.2 L Magnesium Level 2.1 Mean Corpuscular Hemoglobin 27.9 L Mean Corpuscular Hemoglobin Concent 32.6 Mean Corpuscular Volume 85.6 Mean Platelet Volume 7.0 L Monocytes # 0.9 Monocytes % 6.9 Neutrophils # 10.4 H Neutrophils % 82.8 H Nucleated Red Blood Cells # 0.0 Nucleated Red Blood Cells % 0.0 Platelet Count 529 H Potassium Level 4.3 Red Blood Count 4.01 L Red Cell Distribution Width 16.8 H Sodium Level 135 Total Bilirubin 0.0 L Total Protein 4.5 L White Blood Count 12.6 H Medications Medications Current Medications Lorazepam (Ativan) 0.5 mg Q6H PRN IV ANXIETY Last administered on 04/04/16 12: 38; Admin Dose 0.5 MG; Start 04/03/16 at 16:00 Ondansetron HCl (Zofran Inj) 4 mg Q6H PRN IV NAUSEA AND/OR VOMITING; Start 02/05 at 16:00 Nitroglycerin (Nitroglycerin (Sl Tab) 0.4 Mg) 1 tab Q5M PRN SL CHEST PAIN; Start 04/03/16 at 16:00 Acetaminophen (Tylenol Tab) 650 mg Q6H PRN PO PAIN LEVEL 1-3 OR FEVER Last administered on 04/04/16 23:20; Admin Dose 650 MG; Start 04/03/16 at 16:00 Morphine Sulfate (morphine) 2 mg Q4H PRN IV PAIN LEVEL 7-10; Start 04/03/16 at 16:00 Docusate Sodium (Colace) 100 mg Q12H PRN PO CONSTIPATION; Start 04/03/16 at 16: 00 Famotidine (Pepcid Iv) 20 mg Q12 IV Last administered on 04/06/16 08:46; Admin Dose 20 MG; Start 04/03/16 at 21:00 Enoxaparin Sodium 40 mg 40 mg DAILY SC Last administered on 04/06/16 08:53; Admin Dose 40 MG; Start 04/04/16 at 09:00 Ceftriaxone Sodium 50 ml @ 100 mls/hr Q24H IVPB Last administered on 15:00; Admin Dose 100 MLS/HR; Start 04/04/16 at 15:00 Azithromycin (Zithromax 500mg/ NS (Pmx)) 250 ml @ 250 mls/hr Q24H IVPB Last administered on 04/05/16 17:27; Admin Dose 250 MLS/HR; Start 04/04/16 at 16:00 NATASHA RIVAS Apr 06, 2016 12:43
[2016-04-06] MEDS: CEFTRIAXONE 1 GM/50 ML (PMX) 50 ML IVPB SCH (14:51)
[2016-04-06] MEDS: AZITHROMYCIN 500MG/NS (PMX) 250 ML IVPB SCH (16:00)
--- NOTE | 2016-04-06 17:06 | PN ---
Date/Time of Note Date/Time of Note DATE: 04/06/16 TIME: 17:04 Assessment/Plan Lines/Catheters IV Catheter Type (from [facility]): Saline Lock My[facility] in Place (from [facility]): No Assessment/Plan Chief Complaint/Hosp Course 1. Abdominal mass with Sarcoma -heme/onc -sarcoma specialist referral as outpt 2. Left pleural effusion s/p thora 3. Anemia without evidence of acute blood loss. Continue close observation. 4. Leukocytosis. Continue medical workup and management. 5. Thrombocytosis as above. 6. Hypoalbuminemia is probably multifactorial; however, will benefit from eventual nutritional optimization. 7. Hypertension. Continue diet and medication control. 8. Ulcerative colitis. Continue medical management. 9. History of prostate cancer. Continue a oncologic workup and evaluation. Thank you Problems: Subjective 24 Hr Interval Summary IR bx with sarcoma. Minimal pain. No nausea vomiting. No fevers or chills. No chest pain shortness of breath. No visual or neurologic changes. No dysuria. Bowel function. Exam/Review of Systems Vital Signs Vitals Vital Signs Date Time Temp Pulse Resp B/P Pulse Ox O2 Delivery O2 Flow Rate FiO2 04/06/16 15:40 98.2 71 20 156/78 98 04/05/16 22:29 Nasal Cannula 2.0 Intake and Output 04/05/16 04/05/16 04/06/16 15:00 23:00 07:00 Intake Total 800 ml 400 ml Balance 800 ml 400 ml Exam Free Text/Dictation Constitutional: alert, oriented, No distress Psych: nl mood/affect, No anxiety Head: atraumatic, normocephalic Eyes: EOMI, PERRL, nl conjunctiva, No icteric ENMT: mucosa pink and moist, nl external ears & nose, nl lips & teeth Neck: non-tender, supple, No jvd Respiratory: normal air movement, No congested cough, No labored breathing Cardiovascular: regular rate and rhythm, No edema Gastrointestinal: soft, tender (minimal), No distended, No rebound or guarding Genitourinary - Male: nl penis, nl scrotum Musculoskeletal: nl extremities to inspection, nl gait and stance, No joint tenderness Extremities: normal pulses, No calf tenderness, No edema Neurological: nl mental status, nl speech, nl strength Skin: nl turgor, No diaphoresis, No rash or lesions Lymph: nl lymph nodes Results Result Diagram: 04/06/16 0620 04/06/16 0620 WILLIAM PENA MD Apr 06, 2016 17:06
--- NOTE | 2016-04-06 17:49 | PDOCDIS ---
Discharge Instructions CONDITION Patient Condition: Good HOME CARE INSTRUCTIONS: Diet Instructions: Regular ACTIVITY: Activity Restrictions: No Restrictions FOLLOW UP/APPOINTMENTS Appointments F/U WITH YOUR PCP IN 1-2 WEEKS AND WITH YOUR SPECIALISTS SCHEDULED FLACA IBRAHIM Apr 06, 2016 17:49
--- NOTE | 2016-04-06 19:52 | DS ---
DATE OF ADMISSION: 04/03/2016 DATE OF DISCHARGE: 04/06/2016 DISCHARGE DIAGNOSES: 1. Abdominal mass with sarcoma, hematology/oncology evaluated. The patient to follow up with a [facility] coma specialist tomorrow. 2. Left pleural effusion, status post thoracentesis. Cytology shows no malignant cells. 3. Anemia, stable, no evidence of acute blood loss. 4. Hypertension. Continue home medications. 5. continue home meds. 6. History of prostate cancer. Continue outpatient oncology followup. HOSPITAL COURSE: The patient is a 80-year-old male with a past medical history of hypertension, [place] cancer status post seeding, dyslipidemia, previous smoker, alcohol abuse. Patient presented w ith several month history of shortness of breath and weight loss. The patient had an abdominal pelv is CT that showed a large mass in the left upper quadrant of the abdomen of indeterminate origin schuyler suring 23 cm, showed small ascites, moderate size pleural effusion. The patient had a CTA of the ch est that showed no PE, moderate to large left pleural effusion with partial left lung collapse, emph ysema, also marked splenomegaly. Patient had an ultrasound and thoracentesis. Cytology results of the fluid showed no malignant cells. Of note, the patient was seen by pulmonology, oncology and [place]i [place]orado during this hospitalization. The feeling is that the patient has a sarcoma. The patient did h ave a CT-guided biopsy and it appears that prelim results suggested sarcoma. Arrangements are made for patient to follow up with a sarcoma specialist tomorrow. Those arrangements were made by sandra edgar. Patient was cleared for discharge from a hematology standpoint. Dr. Cervantes of surgery also cl eared the patient for discharge. On the day of discharge, the patient's vitals, labs, physical exam were stable. He had no acute complaints and questions were answered. CONDITION ON DISCHARGE: Stable. DISPOSITION: To home. MEDICATIONS: Patient to continue his usual home medications. No new medications prescribed. FOLLOWUP: The patient is to follow up with his PCP in 1 to 2 weeks. The patient has an appointment to follow up with a sarcoma specialist tomorrow. The patient is to follow up with any other specia lists as scheduled. Greater than 30 minutes was spent coordinating discharge of patient. Dictated By: FLACA DANIELS/NTS Conf#: [id number] DID#: [id number]
== END 2016-04-06 18:44 | disposition home or self-care (01) | DRG 542 ==
LOC: E/R 11:50 → TEL 15:36
PROVIDERS: ADMIT Student in an Organized Health Care Education/Training Program; ATTEND Student in an Organized Health Care Education/Training Program
PROC: 07BP3ZX Excision of Spleen, Percutaneous Approach, Diagnostic (ICD-10-PCS; principal; 2016-04-03)
PROC: 0W9B3ZZ Drainage of Left Pleural Cavity, Percutaneous Approach (ICD-10-PCS; 2016-04-04)
DX: C49.9 Malignant neoplasm of connective and soft tissue, unspecified (principal); J96.21 Acute and chronic respiratory failure with hypoxia; J18.9 Pneumonia, unspecified organism; J90 Pleural effusion, not elsewhere classified; K51.90 Ulcerative colitis, unspecified, without complications; E88.09 Other disorders of plasma-protein metabolism, not elsewhere classified; R16.1 Splenomegaly, not elsewhere classified; D63.8 Anemia in other chronic diseases classified elsewhere; J98.19 Other pulmonary collapse; Z87.891 Personal history of nicotine dependence; I25.2 Old myocardial infarction; R63.4 Abnormal weight loss; Z68.24 Body mass index [BMI] 24.0-24.9, adult; Z85.46 Personal history of malignant neoplasm of prostate; I10 Essential (primary) hypertension; E78.5 Hyperlipidemia, unspecified; J43.9 Emphysema, unspecified; D47.3 Essential (hemorrhagic) thrombocythemia
CPT/HCPCS: 32555; 36415; 36600; 71010; 71275; 74177; 77012; 80048; 80053; 80061; 82042; 82105; 82378; 82550; 82553; 82803; 82945; 83036; 83615; 83690; 83735; 84153; 84154; 84155; 84157; 84443; 84484; 85025; 85610; 85730; 86301; 86304; 86850; 86900; 86901; 87070; 87102; 87116; 88104; 88305; 88307; 88313; 88341; 88342; 89050; 93005; 96374; 96375; J0456; J0696; J1650; J2060; J2250; J3010; J7030; J7040; Q9967